=== PATIENT | female | born 1965 | race Caucasian/White ===

== ENCOUNTER 2018-03-01 07:29 | Outpatient (CLI) | payer BC | END 2018-03-01 07:30 | disposition home or self-care (01) | LOC: BICULT 07:29 | PROVIDERS: ATTEND Family Medicine | DX: R10.10 Upper abdominal pain, unspecified (principal) | CPT/HCPCS: 76700 ==

== ENCOUNTER 2018-05-10 16:00 | Outpatient (CLI) | payer BC | END 2018-05-10 16:01 | disposition home or self-care (01) | LOC: BICMAMMO 16:00 | PROVIDERS: ATTEND Family Medicine | DX: Z12.31 Encounter for screening mammogram for malignant neoplasm of breast (principal) | CPT/HCPCS: 77063; 77067 ==

== ENCOUNTER 2018-07-17 08:34 | Outpatient (CLI) | payer BC ==
[2018-07-17] MEDS ORDERED: Iopamidol 370 76% 100 ML VIAL ONE (09:00)
[2018-07-17 09:13] LABS: Bilirubin Negative (Negative); Blood, Urine Negative (Negative); Clarity Clear (Clear); Glucose, Urine (Dipstick) Negative (Negative); Leukocyte Negative (Negative); Nitrite Negative (Negative); Protein, Urine (Dipstick) Negative (Neg-Trace); Urobilinogen 0.2 mg/dL (0.2-1.0); pH, Urine 6.5 (5.0-9.0)
[2018-07-17 09:14] LABS: Specific Gravity, Urine 1.003 (1.002-1.036)
[2018-07-17 09:21] LABS: Bacteria/HPF None Seen HPF (None Seen); Hyaline Casts/LPF NONE SEEN LPF (0-3 Hyaline); RBC/HPF None Seen HPF (0-3); Squamous Epithelial None Seen HPF (0-3); WBC/HPF None Seen HPF (0-3)
[2018-07-17 09:48] LABS: Anion Gap 12 mmol/L (10-20); BUN (Urea Nitrogen) 11 mg/dL (7.0-18.7); Calc. Creatinine Clearance 0 mL/min (70-130); Calcium 9.8 mg/dL (7.8-10.44); Carbon Dioxide 25 mmol/L (22-29); Chloride 105 mmol/L (98-107); Estimated GFR-MDRD 84; Glucose 93 mg/dL (70-105); Sodium 138 mmol/L (136-145)
--- NOTE | 2018-07-17 11:56 | CT ---
CT OF ABDOMEN AND PELVIS PERFORMED WITH AND WITHOUT CONTRAST ENHANCEMENT: Date: 07/17/18 HISTORY: Microhematuria. FINDINGS: The lung bases are clear of infiltrative process. There is a tiny subcentimeter hypodensity in the le ft lobe of the liver, statistically most likely a small cyst. The spleen, pancreas, and gallbladder r egions all appear unremarkable. Right and left adrenal glands are normal in size and appearance. There are no renal calculi identifie d. No signs of any cyst or solid masses of either kidney. There is no significant periaortic or mesen teric adenopathy. The appendix is retrocecal in location and normal in size. CT of pelvis was performed with and without contrast enhancement. No evidence of any significant alysa opathy, mass, or free fluid. Bladder region appears unremarkable. IMPRESSION: No evidence of renal calculi. No cysts or masses identified. POS: [facility]
== END 2018-07-17 08:35 | disposition home or self-care (01) ==
LOC: SCSCT 08:34
PROVIDERS: ATTEND Urology
DX: R31.29 Other microscopic hematuria (principal)
CPT/HCPCS: 36415; 74178; 80048; 81001; 87086

== ENCOUNTER 2018-08-17 14:23 | Outpatient (CLI) | payer BC ==
[2018-08-17 16:53] LABS: #Basophils 0.1 thou/uL (0.0-0.2); #Eosinphils 0.1 thou/uL (0.0-0.7); #Lymphocytes 2.1 thou/uL (1.20-3.40); #Monocytes 0.7 thou/uL (0.11-0.59); #Neutrophils 3.5 thou/uL (1.40-6.50); %Basophils 0.9 % (0.0-1.0); %Eosinophils 2.2 % (0.0-10.0); %Lymphocytes 31.6 % (21.0-51.0); %Monocytes 11.2 % (0.0-10.0); %Neutrophils 54.2 % (42.0-75.0); Hemoglobin 12.6 g/dL (12.0-16.0); Mean Corpuscular HGB CONC 33.2 g/dL (32.0-36.0); Mean Corpuscular Volume 93.4 fL (78.0-98.0); Platelet Count 175 thou/uL (130-400); RBC Distribution Width 11.7 % (11.5-14.5); Red Blood Cell (RBC) Count 4.06 mill/uL (4.20-5.40); White Blood Cell (WBC) Count 6.5 thou/uL (4.8-10.8)
[2018-08-17 17:10] LABS: ALT (SGPT) 37 U/L (8-55); AST (SGOT) 28 U/L (5-34); Albumin 4.4 g/dL (3.5-5.0); Alkaline Phosphatase 72 U/L (40-150); Anion Gap 13 mmol/L (10-20); BUN (Urea Nitrogen) 12 mg/dL (7.0-18.7); Bilirubin, Total 0.5 mg/dL (0.2-1.2); Calc. Creatinine Clearance 0 mL/min (70-130); Calcium 9.9 mg/dL (7.8-10.44); Carbon Dioxide 26 mmol/L (22-29); Chloride 105 mmol/L (98-107); Estimated GFR-MDRD 64; Globulin 3.1 g/dL (2.4-3.5); Glucose 89 mg/dL (70-105); Lipase 24 U/L (8-78); Potassium 4.1 mmol/L (3.5-5.1); Protein, Total 7.5 g/dL (6.0-8.3); Sodium 140 mmol/L (136-145)
--- NOTE | 2018-08-17 19:21 | CT ---
CT OF THE ABDOMEN AND PELVIS WITH IV CONTRAST: 08/17/18 INDICATION: Low back pain and abdominal pain. CONTRAST: 100 mL of Isovue 370. COMPARISON: Prior exam dated 09/17/13. FINDINGS: Lung bases are clear. The liver, spleen, pancreas, and adrenal glands are normal appearing. No focal renal lesion is eviden t. No enlarged lymph nodes or free fluid is evident. There is a normal appendix in the right lower quadr ant. The partially opacified small and large bowel appear within normal limits. No definite acute osseous abnormality is evident. IMPRESSION: 1. No acute abnormality demonstrated. 2. Findings were called to Dr. De La Torre at 5:18 p.m. on 08/17/18. Code CR POS: [id number]
== END 2018-08-17 14:24 ==
LOC: SCSCT 14:23
PROVIDERS: ATTEND Family Medicine
DX: R10.10 Upper abdominal pain, unspecified (principal); R10.30 Lower abdominal pain, unspecified
CPT/HCPCS: 36415; 74177; 80053; 82150; 83690; 85025

== ENCOUNTER 2018-08-27 05:48 | Emergency (ER) | payer BC ==
[2018-08-27] MEDS ORDERED: Famotidine 20 MG TAB ONE (06:33)
[2018-08-27] MEDS ORDERED: Ketorolac Tromethamine 30 MG/ML VIAL ONE (06:34)
[2018-08-27] MEDS ORDERED: Ondansetron PF 4 MG/2 ML Vial ONE (06:34)
[2018-08-27] MEDS ORDERED: Mag-Al Plus 1200 MG/1200 MG/120 MG/30 ML UDCUP ONE (06:34)
[2018-08-27] MEDS ORDERED: Lidocaine Viscous Sol 2% 15 ml UD Cup ONE (06:34)
[2018-08-27 06:39] LABS: #Basophils 0.1 thou/uL (0.0-0.2); #Eosinphils 0.1 thou/uL (0.0-0.7); #Lymphocytes 1.5 thou/uL (1.20-3.40); #Monocytes 0.6 thou/uL (0.11-0.59); #Neutrophils 4.2 thou/uL (1.40-6.50); %Basophils 1.2 % (0.0-1.0); %Eosinophils 1.7 % (0.0-10.0); %Lymphocytes 22.5 % (21.0-51.0); %Monocytes 9.1 % (0.0-10.0); %Neutrophils 65.6 % (42.0-75.0); Hemoglobin 12.4 g/dL (12.0-16.0); Mean Corpuscular HGB CONC 33.9 g/dL (32.0-36.0); Mean Corpuscular Hemoglobin 30.7 pg (27.0-31.0); Mean Corpuscular Volume 90.7 fL (78.0-98.0); Mean Platelet Volume 7.6 fL (7.4-10.4); Platelet Count 176 thou/uL (130-400); RBC Distribution Width 11.6 % (11.5-14.5); Red Blood Cell (RBC) Count 4.02 mill/uL (4.20-5.40); White Blood Cell (WBC) Count 6.4 thou/uL (4.8-10.8)
[2018-08-27 06:52] LABS: ALT (SGPT) 31 U/L (8-55); AST (SGOT) 24 U/L (5-34); Albumin 4.2 g/dL (3.5-5.0); Alkaline Phosphatase 76 U/L (40-150); Anion Gap 14 mmol/L (10-20); BUN (Urea Nitrogen) 13 mg/dL (7.0-18.7); Bilirubin, Total 0.5 mg/dL (0.2-1.2); Calc. Creatinine Clearance 0 mL/min (70-130); Calcium 9.7 mg/dL (7.8-10.44); Carbon Dioxide 24 mmol/L (22-29); Chloride 105 mmol/L (98-107); Estimated GFR-MDRD 77; Globulin 2.9 g/dL (2.4-3.5); Glucose 112 mg/dL (70-105); Lipase 17 U/L (8-78); Potassium 4.2 mmol/L (3.5-5.1); Protein, Total 7.1 g/dL (6.0-8.3); Sodium 139 mmol/L (136-145)
== END 2018-08-27 07:33 | disposition home or self-care (01) ==
LOC: SCSER 05:48
DX: R10.12 Left upper quadrant pain (principal); R11.0 Nausea; I10 Essential (primary) hypertension; E78.00 Pure hypercholesterolemia, unspecified; F41.9 Anxiety disorder, unspecified; Z79.899 Other long term (current) drug therapy
CPT/HCPCS: 80053; 83690; 85025; 93005; 96374; 96375; J1885; J2405

== ENCOUNTER 2018-09-04 11:57 | Day surgery (SDC) | payer BC ==
[2018-09-03 12:56] VITALS: BMI 49.4
[2018-09-04] MEDS ORDERED: PROPOFOL 200 MG/20 ML VIAL ONE (13:56)
[2018-09-04] MEDS ORDERED: Lidocaine 1% PF 5 ML VIAL ONE (13:56)
--- NOTE | 2018-09-04 18:26 | OP ---
DATE OF PROCEDURE: 09/04/2018 TITLE OF PROCEDURE: Esophagogastroduodenoscopy with biopsy. PREOPERATIVE DIAGNOSES: 1. Left upper quadrant pain. 2. Nausea. 3. Intermittent left mid back pain. POSTOPERATIVE DIAGNOSES: 1. Examination to second portion of duodenum. 2. Small 1-2 cm sliding hiatal hernia. 3. Grade A esophagitis at 40 cm, biopsied. 4. Normal stomach. 5. Normal duodenum. 6. No evidence of gastric or duodenal ulcers. PROCEDURE IN DETAIL: Written informed consent was obtained. The patient was brought to the endoscop y suite. Total intravenous anesthesia was provided by Dr. Krueger and associates. The patient was sebastian jass in the left lateral decubitus position. A bite block was inserted into the mouth. A Pentax vide o diagnostic gastroscope was introduced into the oral cavity and the esophagus was carefully intubate d. The gastroscope was advanced under direct visualization to the second portion of the duodenum. E ndoscopic findings revealed a 1-2 cm small sliding hiatal hernia. One discrete linear erosion, no mo re than 3-4 mm in length was identified at the EG junction. Biopsies were obtained for histology. T here was no evidence of ulceration or active bleeding from this area. The stomach was entered and ca refully examined. This included a retroflexed view of the cardia and fundus. The stomach appeared n ormal. The duodenum from the bulb to the second portion was then examined and appeared normal. Ther e was no evidence of ulcer. The stomach was decompressed as the endoscope was removed from the patie nt. She was repositioned for the colonoscopy. RECOMMENDATIONS: 1. Await biopsy results. 2. Initiate Nexium 40 mg daily for 6 weeks. 3. Follow up in GI clinic in 5-6 weeks. 4. 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 5. Low fat diet.
--- NOTE | 2018-09-04 18:45 | OP ---
DATE OF PROCEDURE: 09/04/2018 TITLE OF PROCEDURE: Screening colonoscopy. PREOPERATIVE DIAGNOSIS: Average risk colon cancer screening. POSTOPERATIVE DIAGNOSES: 1. Exam to cecum; good bowel preparation. 2. Small internal hemorrhoids and hypertrophied anal papillae. 3. Otherwise normal colonoscopy; no polyps identified. PROCEDURE IN DETAIL: Written informed consent was obtained. Upon completion of the EGD, the patient was repositioned for the colonoscopy. A digital rectal exam was performed which revealed a small pe rianal tag. A Pentax video colonoscope was inserted through the anal canal and advanced under direct visualization to the cecum. Position in the cecum was verified by clear identification of the appen diceal orifice and the ileocecal valve. The quality of the bowel preparation was good. Each colon s egment was examined carefully as the colonoscope was slowly withdrawn from the cecum. Vascular patte rn and haustral folds appeared normal. No polyp, diverticulum, or vascular ectasia was identified. Haustral folds appeared grossly normal. In the rectum, a retroflexed view demonstrated small interna l hemorrhoids and hypertrophied anal papillae. The colon was decompressed as the colonoscope was com pletely removed from the patient. She was transferred to the day stay surgery area for post-procedur e monitoring. There were no immediate complications. RECOMMENDATIONS: 1. Resume previous diet and medications. 2. Repeat colonoscopy in 10 years for purposes of colon cancer screening. 3. Follow up in GI clinic in 6-8 weeks.
== END 2018-09-04 15:50 | disposition home or self-care (01) ==
LOC: SDC 11:57
PROVIDERS: ATTEND Internal Medicine Gastroenterology
PROC: 0DB28ZX Excision of Middle Esophagus, Via Natural or Artificial Opening Endoscopic, Diagnostic (ICD-10-PCS; principal; 2018-09-04)
PROC: 0DJD8ZZ Inspection of Lower Intestinal Tract, Via Natural or Artificial Opening Endoscopic (ICD-10-PCS; principal; 2018-09-04)
PROC: 0DB38ZX Excision of Lower Esophagus, Via Natural or Artificial Opening Endoscopic, Diagnostic (ICD-10-PCS; principal; 2018-09-04)
DX: Z12.11 Encounter for screening for malignant neoplasm of colon (principal); K20.9 Esophagitis, unspecified; E78.00 Pure hypercholesterolemia, unspecified; I10 Essential (primary) hypertension; Z88.0 Allergy status to penicillin; Z79.899 Other long term (current) drug therapy
CPT/HCPCS: 88305; 88312; 88313; J2001; J2704

== ENCOUNTER 2018-09-26 15:28 | Outpatient (CLI) | payer BC ==
--- NOTE | 2018-09-26 16:33 | MRI ---
LUMBAR SPINE MRI NONCONTRAST: 09/26/18 INDICATION: Bilateral low back pain, without sciatica. Reference made to 09/02/14. FINDINGS: The conus medullaris is normal in morphology terminating at L1 level. There is trace spondylolisthesi s at L4-5. No acute compression fracture or marrow edema. There is bilateral moderate facet hypertrop hy at the L4-5 level with associated cyst formation. The imaged retroperitoneum reveals no significan t abnormality. L5-S1: There is no significant central canal or neural foraminal stenosis. L4-5: Disc osteophyte is present with mild narrowing of the central canal. There is minimal narrowing of the bilateral neural foramina. L3-4: No high grade central canal or neural foraminal stenosis. L2-3: No high grade central canal or neural foraminal narrowing. L1-2: No high grade central canal or neural foraminal stenosis. IMPRESSION: 1. There is no high grade central canal or neural foraminal stenosis. 2. There is mild degenerative changes of the lumbar spine. POS: [facility]
== END 2018-09-26 15:29 | disposition home or self-care (01) ==
LOC: TBSIIMAG 15:28
PROVIDERS: ATTEND Family Medicine
DX: M54.5 Low back pain (principal); M47.816 Spondylosis without myelopathy or radiculopathy, lumbar region
CPT/HCPCS: 72148

== ENCOUNTER 2018-12-21 20:30 | Outpatient (CLI) | payer BC | END 2018-12-21 20:31 | disposition home or self-care (01) | LOC: SLEEPLAB 20:30 | PROVIDERS: ATTEND Family Medicine | DX: G47.33 Obstructive sleep apnea (adult) (pediatric) (principal); I10 Essential (primary) hypertension; E66.9 Obesity, unspecified; F41.9 Anxiety disorder, unspecified; R09.89 Other specified symptoms and signs involving the circulatory and respiratory systems; G47.00 Insomnia, unspecified; R53.83 Other fatigue; Z68.42 Body mass index [BMI] 45.0-49.9, adult | CPT/HCPCS: 95810 ==

== ENCOUNTER 2018-12-28 19:30 | Outpatient (CLI) | payer BC | END 2018-12-28 19:31 | disposition home or self-care (01) | LOC: SLEEPLAB 19:30 | PROVIDERS: ATTEND Family Medicine | DX: G47.33 Obstructive sleep apnea (adult) (pediatric) (principal); R53.83 Other fatigue; R09.89 Other specified symptoms and signs involving the circulatory and respiratory systems; F41.9 Anxiety disorder, unspecified; R06.83 Snoring; G47.00 Insomnia, unspecified; G47.10 Hypersomnia, unspecified; I10 Essential (primary) hypertension; E66.9 Obesity, unspecified; Z68.42 Body mass index [BMI] 45.0-49.9, adult | CPT/HCPCS: 95811 ==

== ENCOUNTER 2019-01-11 13:58 | Outpatient (CLI) | payer BC ==
--- NOTE | 2019-01-11 15:37 | RAD ---
LUMBAR SPINE FOUR VIEWS WITH FLEXION AND EXTENSION STANDING LATERAL VIEWS: HISTORY: Spondylolisthesis. Chronic back pain for years. FINDINGS: Mild grade 1 anterolisthesis of L4 on L5 without evidence for abnormal translation between flexion an d extension. Generalized facet arthrosis. No significant disk osteophytosis. No acute fracture. IMPRESSION: 1. Mild grade 1 stable appearing anterolisthesis of L4 on L5 without abnormal translation between fl exion and extension. 2. Mild generalized spondylosis. POS: [facility]
== END 2019-01-11 13:59 | disposition home or self-care (01) ==
LOC: SCSRAD 13:58
PROVIDERS: ATTEND Anesthesiology Pain Medicine
DX: M43.16 Spondylolisthesis, lumbar region (principal); M47.816 Spondylosis without myelopathy or radiculopathy, lumbar region
CPT/HCPCS: 72120

== ENCOUNTER 2019-02-25 12:35 | Outpatient (CLI) | payer BC ==
--- NOTE | 2019-02-25 15:07 | MRI ---
MRI CERVICAL SPINE WITHOUT CONTRAST: Multiplanar, multisequential imaging of the cervical spine obtained. INDICATION: Cervical and thoracic radiculitis. COMPARISON: Comparison is made to MRI cervical spine dated 06/05/2015. FINDINGS: The cervical vertebrae maintain normal height and alignment. The disk spaces are preserved. Mild de generative osteophytes from the cervical vertebrae. There are posterior spondylytic changes as descr ibed below. At C2-3, no significant abnormality. C3-4 shows minimal disk bulge and spondylosis. Mild left foraminal encroachment from uncinate hypert rophy. At C4-5, mild disk bulge with spondylosis flattens the thecal sac and abuts the anterior word. Mild left foraminal narrowing and moderate right foraminal stenosis due to facet and uncinate hypertrophy. At C5-6, disk bulge and spondylosis abut the anterior cord. Bilateral foraminal encroachment due to uncinate hypertrophy slightly more prominent on the left. At C6-7, there is a prominent disk-osteophyte complex impinging on the anterior cord, similar in appe arance to the prior study. No significant foraminal encroachment at this level is apparent. At C7-T1, no significant abnormality. Cord signal appears normally maintained on T2 sagittal imaging. IMPRESSION: Posterior disk bulge and spondylosis most prominent at C4-5, C5-6, and C6-7 levels as described above . Impingement on the cord is most pronounced at C6-7. Findings do not appear significantly changed when compared to 2015 study. POS: [facility]
--- NOTE | 2019-02-25 15:08 | RAD ---
CERVICAL SPINE SERIES 8 VIEWS INCLUDING FLEXION AND EXTENSION: Date: 02/25/19 HISTORY: Neck pain. FINDINGS: Vertebral bodies are normal in height. Minimal disc narrowing is seen at C5-6. Slightly restricted mo vement at this level is noted, but there is no celina or retrolisthesis present. No soft tissue swell ing. IMPRESSION: Minimal disc narrowing at C5-6. POS: [facility]
== END 2019-02-25 12:36 | disposition home or self-care (01) ==
LOC: TBSIIMAG 12:35
PROVIDERS: ATTEND Anesthesiology Pain Medicine
DX: M54.14 Radiculopathy, thoracic region (principal); M50.20 Other cervical disc displacement, unspecified cervical region; M48.02 Spinal stenosis, cervical region; M47.812 Spondylosis without myelopathy or radiculopathy, cervical region
CPT/HCPCS: 72052; 72141

== ENCOUNTER 2019-03-01 04:49 | Emergency (ER) | payer BC ==
[2019-03-01] MEDS ORDERED: Meclizine HCl 25 MG TAB ONE (05:46)
== END 2019-03-01 05:47 | disposition home or self-care (01) ==
LOC: SCSER 04:49
DX: H81.10 Benign paroxysmal vertigo, unspecified ear (principal); I10 Essential (primary) hypertension; E78.00 Pure hypercholesterolemia, unspecified; F41.9 Anxiety disorder, unspecified; Z79.899 Other long term (current) drug therapy
CPT/HCPCS: 93005; 94760; J8499

== ENCOUNTER 2019-03-28 09:21 | Outpatient (CLI) | payer BC ==
[2019-03-28] MEDS ORDERED: Gadobenate Dimeglumine 529 MG/1 ML (20ML VIAL) ONE (11:43)
--- NOTE | 2019-03-28 14:26 | MRI ---
MRI BRAIN WITH AND WITHOUT CONTRAST: DATE: 03/28/2019. HISTORY: A 53-year-old female with presyncope, vertigo, and imbalance. COMPARISON: 01/26/2017. TECHNIQUE: Multiple sequences obtained in axial, sagittal, and coronal planes; pre and post IV injection of gado linium-based contrast agent: 20 mL MultiHance. FINDINGS: The ventricles are normal in size and configuration. There is no major intraaxial signal abnormality , restricted diffusion, abnormal intraaxial enhancement, mass, midline shift or any other mass effect , or recent intraaxial hemorrhage. There is a CSF-filled extraaxial structure broadly abutting the p osterior surface of the right thalamus, and chronically mildly displacing the right thalamus anterior ly. Medially, it communicates with the superior cerebellar cistern and the velum interpositum, and c ommunicates laterally with the trigone of the right lateral ventricle. It has not changed since 01/26. There has been no significant interval change overall. IMPRESSION: 1. Evidence for small right-sided arachnoid cyst communicating with ventricles and cisterns. This s hould be of little or no clinical significance. 2. Otherwise, normal. jnR POS: [facility]
== END 2019-03-28 09:22 | disposition home or self-care (01) ==
LOC: TBSIIMAG 09:21
PROVIDERS: ATTEND Family Medicine
DX: R55 Syncope and collapse (principal); R42 Dizziness and giddiness; R26.89 Other abnormalities of gait and mobility; R20.0 Anesthesia of skin; R11.0 Nausea; G93.0 Cerebral cysts
CPT/HCPCS: 70553; A9577

== ENCOUNTER 2019-04-09 15:49 | Outpatient (CLI) | payer BC ==
--- NOTE | 2019-04-09 16:42 | MRI ---
MRI thoracic spine noncontrast HISTORY: Back pain with left-sided radiculopathy. FINDINGS: Vertebral body heights and alignment are maintained. Disc hydration is intact. There is subtle decreased in T1 signal and increased T2 signal within the posterior elements of the T 9 vertebra, most prominently involving the right pedicle and facet. No destructive lesions are apparent. Scattered mild to moderate osteophytosis throughout the vertebral bodies and facets. T3-4: Diffuse posterior disc bulge. No cord compression. T7-8: Mild posterior disc protrusion and inferior extension without significant compromise of the the milton sac. T8-9: Mild posterior central disc protrusion. No effect upon the thecal sac or spinal cord. No abnorm al signal is apparent within the cord. IMPRESSION: Mild degenerative changes throughout the thoracic spine as detailed above. No focal spina l cord or nerve root compression. Subtle signal of edema within the posterior elements of T9 without aggressive destruction. Probable d egenerative changes/mild stress reaction.
== END 2019-04-09 15:50 | disposition home or self-care (01) ==
LOC: TBSIIMAG 15:49
PROVIDERS: ATTEND Family Medicine
DX: M54.6 Pain in thoracic spine (principal); M47.814 Spondylosis without myelopathy or radiculopathy, thoracic region
CPT/HCPCS: 72146

== ENCOUNTER 2019-04-30 12:35 | Outpatient (CLI) | payer BC ==
--- NOTE | 2019-04-30 14:43 | PET ---
Nuclear medicine FDG PET/CT whole body: (Positron emission tomography and computed tomography) DATE: 04/30/2019 HISTORY: 53-year-old female with thoracic spine pain and left upper quadrant abdominal pain. No history of can cer. COMPARISON: None available TECHNIQUE: IV injection of F-18 fluorodeoxyglucose (FDG) dose: 13.3 mCi. PET scan and attenuation correction CT performed from vertex of head to bottom of feet. FINDINGS: SUV (standard uptake values) numbers given are maximum SUVs. QCLR used. There is no abnormal FDG-avid lesion in the neck, chest, abdomen, pelvis, head, bilateral upper extre mities, or bilateral lower extremities.. No FDG-avid lesion in the skeleton. Within the limitations of a noncontrast, nondiagnostic CT, no abnormality is identified in the soft tissues of the neck. No mediastinal lymphadenopathy. No aortic aneurysm. Lungs demonstrate no pulmonary edema or consolidation. No pleural effusion or pneumothorax. No renal, ureteral, or bladder calculus. Normal a ppendix. No ascites or pneumoperitoneum. Unremarkable liver, pancreas, adrenals, kidneys, and spleen. No hydronephrosis. IMPRESSION: Normal
== END 2019-04-30 12:36 | disposition home or self-care (01) ==
LOC: PET 12:35
PROVIDERS: ATTEND Family Medicine
DX: M54.6 Pain in thoracic spine (principal); R10.12 Left upper quadrant pain; G89.29 Other chronic pain
CPT/HCPCS: 78816; A9552

== ENCOUNTER 2019-09-03 14:30 | Outpatient (CLI) | payer BC ==
--- NOTE | 2019-09-03 15:22 | MMO ---
Bilateral MAMMO Bilat Screen [facility]. CLINICAL HISTORY: Patient is 53 years old and is seen for screening. The patient has the following family history of breast cancer: cousin female, at age 47, malignant (generic) and cousin female, at age 38, malignant (generic). The patient has no personal history of cancer. VIEWS: The views performed were: bilateral craniocaudal with tomosynthesis and bilateral mediolateral oblique with tomosynthesis. FILMS COMPARED: The present examination has been compared to prior imaging studies performed at [facility] on 05/26/2014, 11/23/2015, 12/22/2016 and 05/10/2018. This study has been interpreted with the assistance of computer-aided detection. MAMMOGRAM FINDINGS: There are scattered fibroglandular densities. There are no suspicious masses, suspicious calcifications, or new areas of architectural distortion. IMPRESSION: THERE IS NO MAMMOGRAPHIC EVIDENCE OF MALIGNANCY. A ROUTINE FOLLOW-UP MAMMOGRAM IN 1 YEAR IS RECOMMENDED. THE RESULTS OF THIS EXAM WERE SENT TO THE PATIENT. ACR BI-RADS Category 1 - Negative MAMMOGRAPHY NOTE: 1. A negative mammogram report should not delay a biopsy if a dominant of clinically suspicious mass is present. 2. Approximately 10% to 15% of breast cancers are not detected by mammography. 3. Adenosis and dense breasts may obscure an underlying neoplasm. Reported by: LIZBETH AUSTIN MD Electonically Signed: [id number]
== END 2019-09-03 14:31 | disposition home or self-care (01) ==
LOC: BICMAMMO 14:30
PROVIDERS: ATTEND Family Medicine
DX: Z12.31 Encounter for screening mammogram for malignant neoplasm of breast (principal); Z80.3 Family history of malignant neoplasm of breast
CPT/HCPCS: 77063; 77067

== ENCOUNTER 2019-12-20 15:19 | Outpatient (CLI) | payer BC ==
--- NOTE | 2019-12-20 15:51 | RAD ---
Cervical spine 5 views: 12/20/2019 COMPARISON: None HISTORY: Neck pain with left upper extremity radiculopathy FINDINGS: Open-mouth odontoid view demonstrates a normal-appearing dens and C1-2 articulation. Cervic al vertebral body height appears normal on the frontal and lateral imaging. The neutral lateral imaging demonstrates no significant anterolisthesis or retrolisthesis. Mild disc space narrowing and posterior osteophyte formation at C5-6. Upon flexion there is minimal anterolisthesis at C2-3 and C3-4 measuring in the 2-3 mm range. This an terolisthesis is not seen on the extension imaging. IMPRESSION: Mild cervical spine degenerative change with minimal anterolisthesis upon flexion as deta ilewilfrido above.
--- NOTE | 2019-12-20 16:34 | MRI ---
Exam: MRI cervical spine without contrast HISTORY: Left arm paresthesia. Neck pain. Bilateral arm numbness, left greater than right. COMPARISON: None FINDINGS: Straightening of normal cervical lordosis is similar to the previous examination. Appropriate T1 mar row signal intensity of the cervical vertebra. Cervical spine vertebral body height is maintained. No fracture No significant STIR hyperintensity to suggest vertebral body edema or ligamentous injury Visualized brain parenchyma, cervicomedullary junction, cervical cord and the upper thoracic cord hav e a normal size and signal intensity. C2-C3: No significant central canal stenosis or significant neural foraminal narrowing C3-C4: No significant central canal stenosis. Right neural foramen is patent. Mild left foraminal arlene rowing due to uncovertebral hypertrophy. C4-C5: Broad-based disc bulge with a right paracentral component. There is mass effect upon the right hemicord. Mild to moderate stenosis of the right aspect of the central spinal canal. Mild bilateral foraminal narrowing due to uncovertebral hypertrophy. C5-C6: Broad-based discussed by complex with a left and right paracentral component. There is mass ef fect and deformity right aspect of the cervical cord. No cord signal hyperintensity. Bilaterally, neural foramina are patent C6-C7: Broad-based disc bulge with central disc herniation. There is effacement of the subarachnoid s pace. Mild to moderate central canal stenosis. Bilaterally, neural foramina are patent C7-T1: No significant central canal stenosis or significant neural foraminal narrowing IMPRESSION: Degenerative changes of the cervical spine as detailed above. Transcribed Date/Time: 12/20/2019 5:06 PM
== END 2019-12-20 15:20 | disposition home or self-care (01) ==
LOC: TBSIIMAG 15:19
PROVIDERS: ATTEND Physician Assistant Surgical
DX: M54.2 Cervicalgia (principal); R20.2 Paresthesia of skin; M47.812 Spondylosis without myelopathy or radiculopathy, cervical region; M43.12 Spondylolisthesis, cervical region
CPT/HCPCS: 72050; 72141

== ENCOUNTER 2020-08-27 07:18 | Outpatient (CLI) | payer BC, OTHER ==
[2020-08-27 09:42] LABS: Hemoglobin 12.1 g/dL (12.0-16.0); Mean Corpuscular HGB CONC 32.9 G/DL (32.0-36.0); Mean Corpuscular Hemoglobin 32.1 PG (27.0-33.0); Mean Corpuscular Volume 97.6 fl (80.0-100.0); Mean Platelet Volume 9.6 fl (7.4-10.4); Platelet Count 217 10x3/uL (130-400); RBC Distribution Width 12.7 % (11.5-14.5); Red Blood Cell (RBC) Count 3.77 10x6/uL (3.90-5.20); White Blood Cell (WBC) Count 4.7 10x3/uL (4.5-11.0)
[2020-08-27 10:06] LABS: PTT 25.8 sec (22.0-33.0); Prothrombin Time 10.2 sec (9.5-12.1)
[2020-08-27 10:21] LABS: Anion Gap 20 mmol/L (10-20); BUN (Urea Nitrogen) 11 mg/dL (9.8-20.1); Calc. Creatinine Clearance 0 mL/min (70-130); Calcium 9.1 mg/dL (7.8-10.44); Carbon Dioxide 22 mmol/L (22-29); Chloride 102 mmol/L (98-107); Estimated GFR-MDRD 64; Glucose 103 mg/dL (70-105); Potassium 4.5 mmol/L (3.5-5.1); Sodium 139 mmol/L (136-145)
[2020-08-27 18:14] LABS: SARS-CoV-2 MS2 Positive; SARS-CoV-2 N Gene Negative; SARS-CoV-2 S Gene Negative; SARS-CoV-2 by NAA Not Detected (NotDetected); SARS-CoV-2 orf1ab Negative
== END 2020-08-27 07:19 | disposition home or self-care (01) ==
LOC: LABBT 07:18
PROVIDERS: ATTEND Surgery
DX: Z01.818 Encounter for other preprocedural examination (principal); M54.12 Radiculopathy, cervical region; M48.02 Spinal stenosis, cervical region; Z20.828 Contact with and (suspected) exposure to other viral communicable diseases
CPT/HCPCS: 80048; 85027; 85610; 85730; 87635; 93005; 93010; U0003

== ENCOUNTER 2020-09-01 05:56 | Day surgery (SDC) | payer BC ==
[2020-08-31 13:14] VITALS: BMI 48.0
[2020-09-01] MEDS ORDERED: Levofloxacin 500 mg/D5W 100 ml Premix Bag ONE (06:26)
[2020-09-01] MEDS ORDERED: Clindamycin/D5W 900 mg/50 ml Premix Bag ONE (06:26)
[2020-09-01] MEDS ORDERED: Thrombin 5000 UNITS/5 ML VIAL ONE (06:31)
[2020-09-01] MEDS ORDERED: Fentanyl 100 MCG/2 ML VIAL ONE ×5 (06:32→11:34)
[2020-09-01] MEDS ORDERED: Midazolam HCl 2 mg/2 ml Vial ONE (06:32)
[2020-09-01] MEDS ORDERED: HYDROmorphone 2 MG/ML VIAL ONE (09:49)
[2020-09-01] MEDS ORDERED: traMADol HCl 50 MG TAB PO PRN (10:06)
[2020-09-01] MEDS ORDERED: Acetaminophen 325 MG TAB PO PRN (10:06)
[2020-09-01] MEDS ORDERED: Ondansetron PF 4 MG/2 ML Vial IVP PRN (10:06)
[2020-09-01] MEDS ORDERED: Milk Of Magnesia 30 ML UDCUP PO PRN (10:06)
[2020-09-01] MEDS ORDERED: Promethazine HCl 25 MG/ML VIAL IM PRN (10:06)
[2020-09-01] MEDS ORDERED: Morphine 2 MG/ML VIAL SLOW IVP PRN (10:06)
[2020-09-01] MEDS ORDERED: Mag-Al 1200 mg/1200 mg/30 ML UDCUP PO PRN (10:06)
[2020-09-01] MEDS ORDERED: Bisacodyl 10 MG SUPP PR PRN (10:06)
[2020-09-01] MEDS ORDERED: Cepastat Lozenges 1 LOZ PO PRN (10:08)
[2020-09-01] MEDS ORDERED: Chloraseptic Spray 180 ml Bottle PO PRN (10:08)
[2020-09-01] MEDS ORDERED: Loratadine 10 MG TAB PO PRN (10:37)
[2020-09-01] MEDS ORDERED: Zolpidem Tartrate 5 MG TAB PO PRN (10:39)
[2020-09-01] MEDS ORDERED: Morphine 4 MG/ML VIAL ONE (10:48)
[2020-09-01] MEDS ORDERED: Non-Formulary Medication 1 EACH PO PRN (11:11)
[2020-09-01] MEDS ORDERED: Promethazine HCl 25 MG/ML VIAL IM/IV PRN (11:15)
[2020-09-01] MEDS ORDERED: Ondansetron HCl/PF 4 MG/2 ML Vial IVP PRN (11:15)
[2020-09-01] MEDS ORDERED: Morphine Sulfate 2 MG/ML SYRINGE SLOW IVP PRN (11:15)
[2020-09-01] MEDS ORDERED: PACU-Morphine 4MG/ML VIAL SLOW IVP PRN (11:15)
--- NOTE | 2020-09-01 11:16 | OP ---
DATE OF PROCEDURE: 09/01/2020 LOCATION: OR 12. PROFESSIONAL SERVICES CONSULTANT: Georgina Mondragon PA-C. 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 PROCEDURES PERFORMED: 1. Anterior C4-C5, C5-C6, C6-C7 diskectomies with decompression of the spinal cord and C5, C6, C7 nerve roots. 2. Placement of interbody spacers packed with allograft, C4-C5, C5-C6, C6-C7, separate from plate. Anterior cervical plate and screw fixation, C4, C5, C6, and C7. 3. Use of operative microscope for microdissection. DESCRIPTION OF PROCEDURE: After informed consent was obtained from the patient, the patient was brought to the OR. Proper patient, pause, and identification were carried out. Following excellent general endotracheal anesthesia induction, the patient was then positioned supine on the OR table and slight cervical extension occurred to expose a right anterior oblique flaquita that would allow for approach to the C4 through C7 segments. This region was sterilely cleansed, prepared, and draped. Proper patient, pause, and identification were carried out. The wound was then opened with a combination of sharp, monopolar, and blunt dissection. We proceeded lateral to the larynx, pharynx, and tracheoesophageal bundle, and medial to the right carotid sheath. We identified the prevertebral layer of deep cervical fascia. This was opened. The longus colli muscle was dissected and retracted, and localization film confirmed our area of interest. We then performed distraction at C4-C5 and the microscope was brought in for microdissection. Diskectomy at C4-C5 was performed with decompression of spinal cord and bilateral C5 nerve roots. The endplates were prepared and interbody spacer packed with allograft was then placed at C4-C5, this was for arthrodesis and this was separate from the plate. This procedure was then repeated at C5-C6 with decompression of spinal cord and C6 nerve roots and at C6-C7 with decompression of spinal cord and C7 nerve roots and preparations of the endplates and placement of interbody spacer packed with allograft at C5-C6, C6-C7. All of these three spacers were separate from the plate. The microscope was then removed. Anterior cervical plate and screw fixation then occurred at C4, C5, C6, C7 with final tightening. Copious irrigation occurred throughout as did maximizing the hemostasis. The wound was then closed in anatomic layers over drain. The patient emerged from anesthesia. Job ID: [id number]
[2020-09-01] MEDS: Sodium Chloride 0.9% 1,000 ML IV SCH ×2 (11:59→23:41)
[2020-09-01] MEDS: HYDROcodone/Acetaminophen 7.5/325 mg Tablet PO PRN ×2 (12:17→18:51)
[2020-09-01] MEDS ORDERED: Glycopyrrolate 0.2 MG/ML 5 ML SYRINGE ONE (12:37)
[2020-09-01] MEDS ORDERED: PROPOFOL 200 MG/20 ML VIAL ONE (12:37)
[2020-09-01] MEDS ORDERED: Dexamethasone 20 MG/5 ML VIAL ONE (12:37)
[2020-09-01] MEDS ORDERED: Lidocaine 1% PF 5 ML VIAL ONE (12:37)
[2020-09-01] MEDS ORDERED: EPHEDRINE 25 MG/5 ML SYRINGE ONE (12:37)
[2020-09-01] MEDS ORDERED: Ondansetron PF 4 MG/2 ML Vial ONE (12:37)
[2020-09-01] MEDS ORDERED: Rocuronium Bromide 10 MG/ML (10ML VIAL) ONE (12:37)
[2020-09-01] MEDS ORDERED: PHENYLEPHRINE-NS 100 MCG/ML 10 ML SYRINGE ONE (12:37)
[2020-09-01] MEDS: tiZANidine HCl 4 MG TAB PO PRN ×2 (13:59→22:08)
[2020-09-01] MEDS: Acetaminophen/Codeine 30-300mg Tablet PO PRN ×3 (13:59→19:53)
[2020-09-01] MEDS: Gabapentin 300 MG CAP PO SCH ×2 (14:00→19:54)
[2020-09-01] MEDS: Clindamycin/D5W 900 MG in Premix Bag 1 BAG IVPB SCH ×2 (15:11→23:40)
[2020-09-01] MEDS ORDERED: Clindamycin/D5W 900 MG in Premix Bag 1 BAG IVPB SCH (16:00)
[2020-09-01] MEDS ORDERED: Atorvastatin Calcium 10 MG TAB PO SCH (21:00)
[2020-09-02] MEDS: Acetaminophen/Codeine 30-300mg Tablet PO PRN (03:20)
[2020-09-02] MEDS: HYDROcodone/Acetaminophen 7.5/325 mg Tablet PO PRN ×2 (04:35→08:54)
[2020-09-02] MEDS: tiZANidine HCl 4 MG TAB PO PRN (05:49)
[2020-09-02 07:57] VITALS: BP 128/74; TEMP 98
[2020-09-02] MEDS: Clindamycin/D5W 900 MG in Premix Bag 1 BAG IVPB SCH (08:51)
[2020-09-02] MEDS: Gabapentin 300 MG CAP PO SCH (08:52)
--- NOTE | 2020-09-02 08:54 | PRG ---
DATE OF SERVICE: 09/02/2020 Ms. Hillman is postoperative day 1 from C4-C7 ACDF. She has had improvement in her neck and arm pain. She is tolerating orals with good strength, minimal drain output. We will remove the drain and she will be discharged. Job ID: [id number]
[2020-09-02] MEDS ORDERED: ESTRADIOL TOP SCH (09:00)
[2020-09-02] MEDS ORDERED: Magnesium Oxide 250 MG TAB PO SCH (09:00)
[2020-09-02] MEDS ORDERED: Lisinopril 20 MG TAB PO SCH (09:00)
[2020-09-02] MEDS ORDERED: Furosemide 40 MG TAB PO SCH (09:00)
== END 2020-09-02 11:58 | disposition home or self-care (01) ==
LOC: SDC 05:56 → SURG A 11:51 → SDC 09-02 11:58
PROVIDERS: ATTEND Surgery
PROC: 0RG20A0 Fusion of 2 or more Cervical Vertebral Joints with Interbody Fusion Device, Anterior Approach, Anterior Column, Open Approach (ICD-10-PCS; principal; 2020-09-02)
PROC: 00NW0ZZ Release Cervical Spinal Cord, Open Approach (ICD-10-PCS; principal; 2020-09-02)
PROC: 01N10ZZ Release Cervical Nerve, Open Approach (ICD-10-PCS; principal; 2020-09-02)
PROC: 0RG2070 Fusion of 2 or more Cervical Vertebral Joints with Autologous Tissue Substitute, Anterior Approach, Anterior Column, Open Approach (ICD-10-PCS; principal; 2020-09-02)
DX: M48.02 Spinal stenosis, cervical region (principal); M54.12 Radiculopathy, cervical region; G99.2 Myelopathy in diseases classified elsewhere; Z79.899 Other long term (current) drug therapy; Z88.0 Allergy status to penicillin
CPT/HCPCS: 76000; C1713; C1776; J1100; J1170; J1956; J2250; J2270; J2405; J2704; J3010; J3490

== ENCOUNTER 2020-10-15 10:58 | Outpatient (CLI) | payer BC ==
--- NOTE | 2020-10-15 12:46 | RAD ---
EXAM: XR Cerv Sp Ap Lat STANDARD PROVIDED CLINICAL HISTORY: Cervical radiculopathy. History of prior neck surgery. COMPARISON: 12/20/2019 FINDINGS: Interval postoperative changes related to anterior cervical fusion of the cervical spine are seen. An terior plate and screws transfix the C4-5 and C5-6, and C6-7 levels. Intradiscal prostheses are seen at these levels. There is limited evaluation of the C6 and C7 vertebral bodies due to overlying osseous structures on the lateral and swimmer's views of the cervical spine. The intradiscal prosthesis at the C6-7 level has an angulated appearance. One of the screws in the C7 vertebral body is not flush with the anterior plate. There is suggestion of trace anterolisthesis of C2 on C3 and C3 on C4. Vertebral body heights of the upper cervical spine are within normal limits. Prevertebral s oft tissues are not well evaluated due to overlying structures. IMPRESSION: Limited examination with limited evaluation of the lower cervical spine. Interval postoperative augustin es related to anterior cervical fusion of C4-C7 are noted. The intradiscal prosthesis at the C6-7 level is angulated and exact position is difficult to determine as the C6 and C7 vertebral arteries a re not well delineated. One of the anterior screws in the C7 vertebral body is not flush with the plate.
== END 2020-10-15 10:59 | disposition home or self-care (01) ==
LOC: TBSIIMAG 10:58
PROVIDERS: ATTEND Surgery
DX: M54.12 Radiculopathy, cervical region (principal); M48.02 Spinal stenosis, cervical region; Z98.1 Arthrodesis status
CPT/HCPCS: 72040

== ENCOUNTER 2020-12-01 14:32 | Outpatient (CLI) | payer BC ==
--- NOTE | 2020-12-01 14:59 | RAD ---
EXAM: CERVICAL SPINE TWO VIEWS: 12/01/20 HISTORY: Follow-up surgery. COMPARISON: 10/15/20. FINDINGS: Anterior cervical fusion changes noted at C4, C5, C6, and C7 with intradiscal prosthesis. No signific ant prevertebral soft tissue swelling. No significant malalignment. Stable from prior exam. IMPRESSION: Stable postoperative changes. POS: [facility]
== END 2020-12-01 14:33 | disposition home or self-care (01) ==
LOC: TBSIIMAG 14:32
PROVIDERS: ATTEND Surgery
DX: M54.12 Radiculopathy, cervical region (principal); Z98.1 Arthrodesis status
CPT/HCPCS: 72040

== ENCOUNTER 2021-02-24 08:09 | Outpatient (CLI) | payer BC | END 2021-02-24 08:10 | disposition home or self-care (01) | LOC: TBSI PT 08:09 | PROVIDERS: ATTEND Surgery | DX: M48.02 Spinal stenosis, cervical region (principal); M50.20 Other cervical disc displacement, unspecified cervical region; M54.12 Radiculopathy, cervical region; Z98.890 Other specified postprocedural states | CPT/HCPCS: 72040 ==

== ENCOUNTER 2021-03-23 10:15 | Outpatient (CLI) | payer BC | END 2021-03-23 10:16 | disposition home or self-care (01) | LOC: TBSIIMAG 10:15 | PROVIDERS: ATTEND Surgery | DX: M54.12 Radiculopathy, cervical region (principal); M48.02 Spinal stenosis, cervical region; M48.8X2 Other specified spondylopathies, cervical region; Z98.1 Arthrodesis status | CPT/HCPCS: 72141 ==

== ENCOUNTER 2021-04-16 06:56 | Day surgery (SDC) | payer BC ==
[2021-04-14 10:51] VITALS: BMI 48.0
[2021-04-16 07:58] VITALS: BP 132/74; TEMP 97.8
[2021-04-16] MEDS ORDERED: Acetaminophen 500 MG TAB ONE (09:12)
[2021-04-16] MEDS ORDERED: Iopamidol-M 300 61% 15 ML VIAL ONE (11:00)
== END 2021-04-16 09:45 | disposition home or self-care (01) ==
LOC: RAD 06:56
PROVIDERS: ATTEND Surgery
PROC: B02B1ZZ Computerized Tomography (CT Scan) of Spinal Cord using Low Osmolar Contrast (ICD-10-PCS; principal; 2021-04-16)
DX: M43.12 Spondylolisthesis, cervical region (principal); M54.12 Radiculopathy, cervical region; M25.78 Osteophyte, vertebrae; M48.02 Spinal stenosis, cervical region; I10 Essential (primary) hypertension; E78.5 Hyperlipidemia, unspecified; G47.30 Sleep apnea, unspecified; Z79.899 Other long term (current) drug therapy; Z88.0 Allergy status to penicillin; Z98.1 Arthrodesis status
CPT/HCPCS: 62302; 72126; Q9967

== ENCOUNTER 2021-05-06 10:42 | Outpatient (CLI) | payer BC | END 2021-05-06 10:43 | disposition home or self-care (01) | LOC: BICMAMMO 10:42 | PROVIDERS: ATTEND Family Medicine | DX: Z12.31 Encounter for screening mammogram for malignant neoplasm of breast (principal); Z80.3 Family history of malignant neoplasm of breast | CPT/HCPCS: 77063; 77067 ==

== ENCOUNTER 2021-12-07 23:05 | Inpatient (IN) | payer BC ==
[2021-12-07] MEDS ORDERED: Albuterol 200 PUFF (6.7GM INHALER) ONE (23:35)
[2021-12-07] MEDS ORDERED: methylPREDNISolone Sod Succ/PF 125 MG/2 ML VIAL ONE (23:35)
[2021-12-07 23:37] LABS: #Lymphocytes 0.5 thou/uL (1.20-3.40); #Monocytes 0.2 thou/uL (0.11-0.59); #Neutrophils 3.9 thou/uL (1.40-6.50); %Basophils 0.8 % (0.0-1.0); %Eosinophils 0.1 % (0.0-10.0); %Lymphocytes 10.3 % (21.0-51.0); %Monocytes 4.5 % (0.0-10.0); %Neutrophils 84.3 % (42.0-75.0); Mean Corpuscular HGB CONC 34.1 g/dL (32.0-36.0); Mean Corpuscular Hemoglobin 32.2 pg (27.0-31.0); Mean Corpuscular Volume 94.4 fL (78.0-98.0); Mean Platelet Volume 7.6 fL (7.4-10.4); Platelet Count 176 thou/uL (130-400); RBC Distribution Width 12.4 % (11.5-14.5); Red Blood Cell (RBC) Count 3.43 mill/uL (4.20-5.40); White Blood Cell (WBC) Count 4.6 thou/uL (4.8-10.8)
[2021-12-07 23:57] LABS: ALT (SGPT) 118 U/L (8-55); AST (SGOT) 132 U/L (5-34); Albumin 3.5 g/dL (3.5-5.0); Alkaline Phosphatase 70 U/L (40-110); Anion Gap 16 mmol/L (10-20); BUN (Urea Nitrogen) 22 mg/dL (9.8-20.1); Bilirubin, Total 0.5 mg/dL (0.2-1.2); Calc. Creatinine Clearance 0 mL/min (70-130); Calcium 8.7 mg/dL (7.8-10.44); Carbon Dioxide 21 mmol/L (22-29); Chloride 100 mmol/L (98-107); Globulin 3.1 g/dL (2.4-3.5); Glucose 114 mg/dL (70-105); Potassium 3.3 mmol/L (3.5-5.1); Protein, Total 6.6 g/dL (6.0-8.3); Sodium 134 mmol/L (136-145)
[2021-12-08] MEDS ORDERED: Acetaminophen 500 MG TAB ONE (00:14)
[2021-12-08] MEDS ORDERED: Ondansetron PF 4 MG/2 ML Vial IVP PRN (00:57)
[2021-12-08] MEDS ORDERED: Acetaminophen 325 MG TAB PO PRN (00:57)
[2021-12-08] MEDS ORDERED: Fentanyl 100 MCG/2 ML VIAL ONE (01:43)
[2021-12-08] MEDS ORDERED: Enoxaparin Sodium 100 MG/ML SYRINGE ONE (02:03)
[2021-12-08] MEDS ORDERED: Enoxaparin Sodium 40 MG/0.4 ML SYRINGE ONE (02:03)
[2021-12-08] MEDS ORDERED: HYDROcodone/Acetaminophen 7.5/325 mg Tablet ONE (03:46)
[2021-12-08] MEDS ORDERED: Benzonatate 100 MG CAP ONE (05:05)
[2021-12-08] MEDS ORDERED: Benzonatate 100 MG CAP PO SCH (06:30)
[2021-12-08] MEDS ORDERED: HYDROcodone/Acetaminophen 7.5/325 mg Tablet PO SCH (06:30)
[2021-12-08] MEDS: Heparin 5,000 UNITS/ML VIAL SC SCH ×3 (08:24→20:32)
[2021-12-08 08:26] LABS: Clarity Clear (Clear); Leukocyte Negative (Negative); pH, Urine 5.5 (5.0-9.0)
[2021-12-08 08:27] LABS: Bilirubin Negative (Negative); Blood, Urine Negative (Negative); Glucose, Urine (Dipstick) Negative (Negative); Ketone, Urine Negative (Negative); Nitrite Negative (Negative); Protein, Urine (Dipstick) Trace mg/dL (Neg-Trace); Urobilinogen 0.2 mg/dL (Less than 2)
[2021-12-08] MEDS ORDERED: Famotidine 20 MG TAB PO SCH (09:00)
[2021-12-08] MEDS ORDERED: hydrALAZINE 20 MG/ML VIAL SLOW IVP PRN (10:12)
[2021-12-08] MEDS ORDERED: Sodium Chloride 0.65% Nasal 44 ML BOT EA NARE PRN (10:12)
[2021-12-08] MEDS ORDERED: Zolpidem Tartrate 5 MG TAB PO PRN (10:12)
[2021-12-08] MEDS ORDERED: Senokot S 8.6-50 MG TAB PO PRN (10:12)
[2021-12-08] MEDS ORDERED: Cepastat Lozenges 1 LOZ PO PRN (10:12)
[2021-12-08] MEDS ORDERED: Calcium Carbonate 500 MG ChewTAB PO PRN (10:12)
[2021-12-08] MEDS ORDERED: Loratadine 10 MG TAB PO PRN (10:12)
[2021-12-08] MEDS ORDERED: Loperamide HCl 2 MG CAP PO PRN (10:12)
[2021-12-08] MEDS ORDERED: Albuterol 200 PUFF (6.7GM INHALER) INH PRN (10:22)
[2021-12-08 10:49] LABS: #Lymphocytes 0.5 thou/uL (1.20-3.40); #Monocytes 0.1 thou/uL (0.11-0.59); #Neutrophils 3.9 thou/uL (1.40-6.50); %Eosinophils 0.1 % (0.0-10.0); %Lymphocytes 11.3 % (21.0-51.0); %Monocytes 2.1 % (0.0-10.0); %Neutrophils 86.5 % (42.0-75.0); Hemoglobin 10.6 g/dL (12.0-16.0); Mean Corpuscular HGB CONC 33.7 g/dL (32.0-36.0); Mean Corpuscular Volume 95.1 fL (78.0-98.0); Mean Platelet Volume 7.6 fL (7.4-10.4); Platelet Count 164 thou/uL (130-400); RBC Distribution Width 12.4 % (11.5-14.5); Red Blood Cell (RBC) Count 3.31 mill/uL (4.20-5.40); White Blood Cell (WBC) Count 4.5 thou/uL (4.8-10.8)
[2021-12-08] MEDS: Benzonatate 100 MG CAP PO PRN ×3 (11:01→23:04)
[2021-12-08] MEDS: guaiFENesin/Codeine 200 mg/20 mg 10 ml Cup PO PRN ×3 (11:01→22:45)
[2021-12-08 11:11] LABS: Anion Gap 15 mmol/L (10-20); BUN (Urea Nitrogen) 24 mg/dL (9.8-20.1); Calc. Creatinine Clearance 97 mL/min (70-130); Calcium 8.5 mg/dL (7.8-10.44); Carbon Dioxide 20 mmol/L (22-29); Chloride 105 mmol/L (98-107); Glucose 190 mg/dL (70-105); Potassium 3.8 mmol/L (3.5-5.1); Sodium 136 mmol/L (136-145)
[2021-12-08] MEDS: Albuterol 200 PUFF (6.7GM INHALER) INH SCH ×2 (13:03→19:04)
[2021-12-08] MEDS: HYDROcodone/Acetaminophen 5/325 mg Tablet PO PRN ×2 (13:07→15:59)
[2021-12-08] MEDS ORDERED: HYDROcodone/Acetaminophen 10/325 mg Tablet PO PRN (18:19)
[2021-12-08] MEDS: Pregabalin 75 MG CAP PO SCH (20:31)
[2021-12-09 02:54] LABS: Actual Bicarbonate (HCO3a) 23.5 mEq/L (22-28); Base Excess (BEa) -1.1 mEq/L (-2.0 to +3.0); CO2 Tension 38.7 mmHg (35.0-45.0); Calcium, Ionized (arterial) 1.18 mmol/L (1.12-1.30); Carboxyhemoglobin (COHb) 0.3 gm% (0.0-3.0); Hemoglobin (Hb) 11.4 g/dL (12.0-16.0); Potassium - ABG Lab 3.89 mmol/L (3.70-5.30)
[2021-12-09 03:06] LABS: O2 Tension (PaO2), arterial 46.9 mmHg (80.0-100.0)
[2021-12-09 03:07] LABS: ALV-art Gradient 546.425 mmHg (0-20); Puncture Site LBR
[2021-12-09] MEDS: Albuterol 200 PUFF (6.7GM INHALER) INH SCH ×4 (03:19→19:37)
[2021-12-09] MEDS ORDERED: ALPRAZolam 0.25 MG TAB PO SCH (03:30)
[2021-12-09 03:51] LABS: #Lymphocytes 0.8 thou/uL (1.20-3.40); #Monocytes 0.3 thou/uL (0.11-0.59); #Neutrophils 6.7 thou/uL (1.40-6.50); %Basophils 0.4 % (0.0-1.0); %Eosinophils 0.1 % (0.0-10.0); %Lymphocytes 10.5 % (21.0-51.0); %Monocytes 3.7 % (0.0-10.0); %Neutrophils 85.4 % (42.0-75.0); Hemoglobin 11.2 g/dL (12.0-16.0); Mean Corpuscular HGB CONC 33.8 g/dL (32.0-36.0); Mean Corpuscular Hemoglobin 32.1 pg (27.0-31.0); Mean Corpuscular Volume 94.9 fL (78.0-98.0); Mean Platelet Volume 7.9 fL (7.4-10.4); Platelet Count 222 thou/uL (130-400); RBC Distribution Width 12.3 % (11.5-14.5); Red Blood Cell (RBC) Count 3.48 mill/uL (4.20-5.40); White Blood Cell (WBC) Count 7.9 thou/uL (4.8-10.8)
[2021-12-09 04:09] LABS: Anion Gap 14 mmol/L (10-20); BUN (Urea Nitrogen) 23 mg/dL (9.8-20.1); CRP (Inflammatory) 13.49 mg/dL (= or < 0.5); Calc. Creatinine Clearance 132 mL/min (70-130); Calcium 8.8 mg/dL (7.8-10.44); Carbon Dioxide 20 mmol/L (22-29); Chloride 107 mmol/L (98-107); Glucose 130 mg/dL (70-105); Magnesium 1.9 mg/dL (1.6-2.6); Potassium 3.9 mmol/L (3.5-5.1); Sodium 137 mmol/L (136-145)
[2021-12-09] MEDS: Heparin 5,000 UNITS/ML VIAL SC SCH ×2 (08:18→14:55)
[2021-12-09] MEDS: Ascorbic Acid 500 mg Chewable Tablet PO SCH (08:19)
[2021-12-09] MEDS: Cholecalciferol 1,000 UNITS (25 MCG) TAB PO SCH (08:19)
[2021-12-09] MEDS: Zinc Sulfate 220 MG CAP PO SCH (08:19)
[2021-12-09] MEDS: Aspirin 325 MG TAB PO SCH (08:19)
[2021-12-09] MEDS: Benzonatate 100 MG CAP PO PRN (08:20)
[2021-12-09] MEDS: Pregabalin 75 MG CAP PO SCH ×3 (08:21→20:09)
[2021-12-09] MEDS: DULoxetine 60 MG CAP PO SCH (08:23)
[2021-12-09 08:43] LABS: ALT (SGPT) 89 U/L (8-55); AST (SGOT) 110 U/L (5-34); Albumin 3.5 g/dL (3.5-5.0); Alkaline Phosphatase 65 U/L (40-110); Bilirubin, Direct 0.2 mg/dL (0.1-0.3); Bilirubin, Total 0.3 mg/dL (0.2-1.2); Phosphorus 3.5 mg/dL (2.3-4.7); Protein, Total 6.5 g/dL (6.0-8.3)
[2021-12-09] MEDS ORDERED: Dexamethasone 4 mg/ml Vial SLOW IVP SCH (09:00)
[2021-12-09] MEDS: guaiFENesin/Codeine 200 mg/20 mg 10 ml Cup PO PRN (14:54)
[2021-12-09] MEDS: Pantoprazole 40 MG VIAL IVP SCH (16:28)
[2021-12-09] MEDS: Dexamethasone 10 MG/ML VIAL SLOW IVP SCH (20:04)
[2021-12-09] MEDS: Enoxaparin Sodium 60 MG/0.6 ML SYRINGE SC SCH (20:05)
[2021-12-09] MEDS: Atorvastatin Calcium 10 MG TAB PO SCH (20:08)
[2021-12-09] MEDS ORDERED: BARICITINIB 2 MG TAB PO SCH (21:00)
[2021-12-10] MEDS: Albuterol 200 PUFF (6.7GM INHALER) INH SCH ×4 (01:27→19:02)
[2021-12-10] MEDS: Pantoprazole 40 MG VIAL IVP SCH ×2 (04:19→17:07)
[2021-12-10 04:24] LABS: #Basophils 0.1 thou/uL (0.0-0.2); #Lymphocytes 0.7 thou/uL (1.20-3.40); #Monocytes 0.3 thou/uL (0.11-0.59); #Neutrophils 5.8 thou/uL (1.40-6.50); %Basophils 1.4 % (0.0-1.0); %Eosinophils 0.1 % (0.0-10.0); %Lymphocytes 10.2 % (21.0-51.0); %Monocytes 4.3 % (0.0-10.0); Hemoglobin 10.7 g/dL (12.0-16.0); Mean Corpuscular HGB CONC 32.8 g/dL (32.0-36.0); Mean Corpuscular Hemoglobin 32.3 pg (27.0-31.0); Mean Corpuscular Volume 98.5 fL (78.0-98.0); Platelet Count 256 thou/uL (130-400); RBC Distribution Width 12.4 % (11.5-14.5); Red Blood Cell (RBC) Count 3.31 mill/uL (4.20-5.40); White Blood Cell (WBC) Count 6.9 thou/uL (4.8-10.8)
[2021-12-10 04:36] LABS: Anion Gap 14 mmol/L (10-20); BUN (Urea Nitrogen) 29 mg/dL (9.8-20.1); Calc. Creatinine Clearance 157 mL/min (70-130); Carbon Dioxide 23 mmol/L (22-29); Chloride 107 mmol/L (98-107); Glucose 168 mg/dL (70-105); Potassium 4.4 mmol/L (3.5-5.1); Sodium 140 mmol/L (136-145)
[2021-12-10 04:37] LABS: ALT (SGPT) 76 U/L (8-55); AST (SGOT) 93 U/L (5-34); Albumin 3.3 g/dL (3.5-5.0); Alkaline Phosphatase 69 U/L (40-110); Bilirubin, Direct 0.2 mg/dL (0.1-0.3); Bilirubin, Total 0.3 mg/dL (0.2-1.2); Protein, Total 6.4 g/dL (6.0-8.3)
[2021-12-10] MEDS: Pregabalin 75 MG CAP PO SCH ×3 (08:57→20:36)
[2021-12-10] MEDS: Zinc Sulfate 220 MG CAP PO SCH (09:02)
[2021-12-10] MEDS: Aspirin 325 MG TAB PO SCH (09:02)
[2021-12-10] MEDS: Ascorbic Acid 500 mg Chewable Tablet PO SCH (09:02)
[2021-12-10] MEDS: Cholecalciferol 1,000 UNITS (25 MCG) TAB PO SCH (09:02)
[2021-12-10] MEDS: DULoxetine 60 MG CAP PO SCH (09:02)
[2021-12-10] MEDS: Dexamethasone 10 MG/ML VIAL SLOW IVP SCH ×2 (09:03→20:37)
[2021-12-10] MEDS: Enoxaparin Sodium 60 MG/0.6 ML SYRINGE SC SCH ×2 (09:03→20:36)
[2021-12-10] MEDS ORDERED: Propofol 1,000 MG/100 ML VIAL IV ONE (13:45)
[2021-12-10] MEDS ORDERED: Ventilator Sedation Protocol 1 EACH FS ONE (14:21)
[2021-12-10] MEDS ORDERED: Vecuronium 10 MG VIAL IV PRN (14:22)
[2021-12-10 14:26] LABS: Actual Bicarbonate (HCO3a) 23.6 mEq/L (22-28); Base Excess (BEa) -1.6 mEq/L (-2.0 to +3.0); CO2 Tension 41.8 mmHg (35.0-45.0); Calcium, Ionized (arterial) 1.22 mmol/L (1.12-1.30); Carboxyhemoglobin (COHb) 0.3 gm% (0.0-3.0); Hemoglobin (Hb) 11.9 g/dL (12.0-16.0); Potassium - ABG Lab 4.57 mmol/L (3.70-5.30); pH, Arterial 7.37 (7.35-7.45)
[2021-12-10] MEDS ORDERED: Fentanyl BOLUS 250 ML IVPB PRN (14:30)
[2021-12-10] MEDS ORDERED: fentaNYL Citrate/PF 2,000 MCG in Sodium Chloride 0.9% 60 ML IV SCH (14:30)
[2021-12-10] MEDS ORDERED: Propofol BOLUS 1,000 MG/100 ML VIAL IV PRN (14:30)
[2021-12-10] MEDS ORDERED: Morphine 4 MG/ML VIAL SLOW IVP PRN (14:30)
[2021-12-10 14:39] LABS: O2 Tension (PaO2), arterial 51.7 mmHg (80.0-100.0); Puncture Site RRA
[2021-12-10] MEDS: Lorazepam 2 MG/ML VIAL SLOW IVP PRN ×3 (15:26→23:48)
[2021-12-10] MEDS: Vecuronium 10 MG VIAL IV PRN ×4 (15:26→23:48)
[2021-12-10] MEDS ORDERED: Sodium Chloride 3% 100 ML IVPB SCH (17:15)
[2021-12-10] MEDS ORDERED: Furosemide 40 MG/4 ML VIAL SLOW IVP SCH (18:15)
[2021-12-10] MEDS: Propofol 1,000 MG/100 ML VIAL IV PRN (19:13)
[2021-12-10] MEDS ORDERED: fentaNYL Citrate-0.9 % NaCl/PF 100 ML IV SCH (19:30)
[2021-12-10] MEDS: Atorvastatin Calcium 10 MG TAB PO SCH (20:36)
[2021-12-10] MEDS: BARICITINIB 2 MG TAB PO SCH (20:37)
[2021-12-10] MEDS ORDERED: Sterile Water 10 ML ONE ×2 (21:05→23:44)
[2021-12-11] MEDS: Albuterol 200 PUFF (6.7GM INHALER) INH SCH ×5 (00:25→23:23)
[2021-12-11] MEDS: Propofol 1,000 MG/100 ML VIAL IV PRN ×5 (00:44→20:15)
[2021-12-11] MEDS: Pantoprazole 40 MG VIAL IVP SCH ×2 (03:20→15:58)
[2021-12-11] MEDS: Lorazepam 2 MG/ML VIAL SLOW IVP PRN ×8 (03:21→20:15)
[2021-12-11] MEDS: Vecuronium 10 MG VIAL IV PRN ×9 (03:21→23:26)
[2021-12-11 04:12] LABS: #Eosinphils 0.1 thou/uL (0.0-0.7); #Lymphocytes 0.7 thou/uL (1.20-3.40); #Monocytes 0.5 thou/uL (0.11-0.59); #Neutrophils 4.5 thou/uL (1.40-6.50); %Basophils 0.3 % (0.0-1.0); %Eosinophils 2.1 % (0.0-10.0); %Monocytes 8.1 % (0.0-10.0); %Neutrophils 77.6 % (42.0-75.0); Hemoglobin 10.6 g/dL (12.0-16.0); Mean Corpuscular HGB CONC 34.3 g/dL (32.0-36.0); Mean Corpuscular Hemoglobin 32.9 pg (27.0-31.0); Mean Platelet Volume 8.3 fL (7.4-10.4); Platelet Count 252 thou/uL (130-400); RBC Distribution Width 12.2 % (11.5-14.5); Red Blood Cell (RBC) Count 3.21 mill/uL (4.20-5.40); White Blood Cell (WBC) Count 5.8 thou/uL (4.8-10.8)
[2021-12-11 04:33] LABS: ALT (SGPT) 70 U/L (8-55); AST (SGOT) 76 U/L (5-34); Albumin 3.1 g/dL (3.5-5.0); Alkaline Phosphatase 80 U/L (40-110); Anion Gap 15 mmol/L (10-20); BUN (Urea Nitrogen) 30 mg/dL (9.8-20.1); Bilirubin, Direct 0.3 mg/dL (0.1-0.3); Bilirubin, Total 0.4 mg/dL (0.2-1.2); Calc. Creatinine Clearance 172 mL/min (70-130); Calcium 8.6 mg/dL (7.8-10.44); Carbon Dioxide 25 mmol/L (22-29); Chloride 105 mmol/L (98-107); Glucose 225 mg/dL (70-105); Potassium 3.3 mmol/L (3.5-5.1); Sodium 142 mmol/L (136-145)
[2021-12-11] MEDS ORDERED: Sterile Water 10 ML ONE (06:16)
[2021-12-11] MEDS: Enoxaparin Sodium 60 MG/0.6 ML SYRINGE SC SCH ×2 (07:52→22:08)
[2021-12-11] MEDS: Zinc Sulfate 220 MG CAP PO SCH (07:53)
[2021-12-11] MEDS: Ascorbic Acid 500 mg Chewable Tablet PO SCH (07:53)
[2021-12-11] MEDS: Pregabalin 75 MG CAP PO SCH ×2 (09:11→12:32)
[2021-12-11] MEDS: Cholecalciferol 1,000 UNITS (25 MCG) TAB PO SCH (09:11)
[2021-12-11] MEDS: Dexamethasone 10 MG/ML VIAL SLOW IVP SCH ×2 (09:11→22:08)
[2021-12-11] MEDS: DULoxetine 60 MG CAP PO SCH (09:59)
[2021-12-11] MEDS: Aspirin 325 MG TAB PO SCH (12:29)
[2021-12-11] MEDS: BARICITINIB 2 MG TAB PO SCH (22:08)
[2021-12-11] MEDS: Atorvastatin Calcium 10 MG TAB PO SCH (22:08)
[2021-12-12] MEDS: Lorazepam 2 MG/ML VIAL SLOW IVP PRN ×11 (01:21→23:06)
[2021-12-12] MEDS: Vecuronium 10 MG VIAL IV PRN ×11 (01:21→23:06)
[2021-12-12] MEDS: Propofol 1,000 MG/100 ML VIAL IV PRN ×5 (01:28→23:30)
[2021-12-12] MEDS: Pantoprazole 40 MG VIAL IVP SCH ×2 (04:05→16:26)
[2021-12-12 04:58] LABS: ALT (SGPT) 64 U/L (8-55); AST (SGOT) 62 U/L (5-34); Albumin 3.2 g/dL (3.5-5.0); Alkaline Phosphatase 71 U/L (40-110); Anion Gap 7 mmol/L (10-20); BUN (Urea Nitrogen) 24 mg/dL (9.8-20.1); Bilirubin, Direct 0.3 mg/dL (0.1-0.3); Bilirubin, Total 0.6 mg/dL (0.2-1.2); Calc. Creatinine Clearance 188 mL/min (70-130); Carbon Dioxide 31 mmol/L (22-29); Chloride 106 mmol/L (98-107); Globulin 2.6 g/dL (2.4-3.5); Glucose 210 mg/dL (70-105); Potassium 3.4 mmol/L (3.5-5.1); Protein, Total 5.8 g/dL (6.0-8.3); Sodium 141 mmol/L (136-145)
[2021-12-12 05:26] LABS: Hemoglobin 10.8 g/dL (12.0-16.0); Mean Corpuscular HGB CONC 33.8 g/dL (32.0-36.0); Mean Corpuscular Hemoglobin 32.7 pg (27.0-31.0); Mean Corpuscular Volume 96.7 fL (78.0-98.0); Mean Platelet Volume 8.1 fL (7.4-10.4); Platelet Count 317 thou/uL (130-400); RBC Distribution Width 12.3 % (11.5-14.5); Red Blood Cell (RBC) Count 3.31 mill/uL (4.20-5.40); White Blood Cell (WBC) Count 6.7 thou/uL (4.8-10.8)
[2021-12-12] MEDS ORDERED: Potassium Chloride 20 MEQ in Premix Bag 1 BAG IVPB SCH (05:45)
[2021-12-12 06:42] LABS: #Eosinphils 0.1 thou/uL (0.0-0.7); #Monocytes 0.7 thou/uL (0.11-0.59); %Basophils 0.1 % (0.0-1.0); %Eosinophils 0.8 % (0.0-10.0); %Lymphocytes 14.3 % (21.0-51.0); %Monocytes 10.1 % (0.0-10.0); %Neutrophils 74.8 % (42.0-75.0); RBC Morphology Normal
[2021-12-12] MEDS: fentaNYL Citrate/PF 2,000 MCG in Sodium Chloride 0.9% 60 ML IV SCH (07:22)
[2021-12-12] MEDS: Albuterol 200 PUFF (6.7GM INHALER) INH SCH ×4 (08:00→23:43)
[2021-12-12] MEDS: Dexamethasone 10 MG/ML VIAL SLOW IVP SCH ×2 (09:54→20:49)
[2021-12-12] MEDS: Zinc Sulfate 220 MG CAP PO SCH (09:54)
[2021-12-12] MEDS: Ascorbic Acid 500 mg Chewable Tablet PO SCH (09:54)
[2021-12-12] MEDS: Cholecalciferol 1,000 UNITS (25 MCG) TAB PO SCH (09:55)
[2021-12-12] MEDS: Enoxaparin Sodium 60 MG/0.6 ML SYRINGE SC SCH ×2 (09:55→20:50)
[2021-12-12] MEDS: Aspirin 325 MG TAB PO SCH (09:55)
[2021-12-12] MEDS: BARICITINIB 2 MG TAB PO SCH (20:49)
[2021-12-12] MEDS: Atorvastatin Calcium 10 MG TAB PO SCH (20:50)
[2021-12-13] MEDS: Vecuronium 10 MG VIAL IV PRN ×3 (01:44→08:51)
[2021-12-13] MEDS: Lorazepam 2 MG/ML VIAL SLOW IVP PRN ×2 (01:45→08:51)
[2021-12-13] MEDS: Pantoprazole 40 MG VIAL IVP SCH ×2 (03:16→16:37)
[2021-12-13] MEDS: Propofol 1,000 MG/100 ML VIAL IV PRN ×6 (03:16→20:12)
[2021-12-13 03:43] LABS: Hemoglobin 10.7 g/dL (12.0-16.0); Mean Corpuscular HGB CONC 34.1 g/dL (32.0-36.0); Mean Corpuscular Hemoglobin 33.1 pg (27.0-31.0); Mean Platelet Volume 8.2 fL (7.4-10.4); Platelet Count 311 thou/uL (130-400); RBC Distribution Width 12.4 % (11.5-14.5); Red Blood Cell (RBC) Count 3.25 mill/uL (4.20-5.40); White Blood Cell (WBC) Count 7.1 thou/uL (4.8-10.8)
[2021-12-13 04:00] LABS: ALT (SGPT) 75 U/L (8-55); AST (SGOT) 64 U/L (5-34); Alkaline Phosphatase 67 U/L (40-110); Anion Gap 20 mmol/L (10-20); BUN (Urea Nitrogen) 27 mg/dL (9.8-20.1); Bilirubin, Direct 0.4 mg/dL (0.1-0.3); Bilirubin, Total 0.7 mg/dL (0.2-1.2); Calc. Creatinine Clearance 192 mL/min (70-130); Calcium 8.1 mg/dL (7.8-10.44); Carbon Dioxide 18 mmol/L (22-29); Chloride 105 mmol/L (98-107); Globulin 2.6 g/dL (2.4-3.5); Glucose 257 mg/dL (70-105); Potassium 3.9 mmol/L (3.5-5.1); Protein, Total 5.6 g/dL (6.0-8.3); Sodium 139 mmol/L (136-145)
[2021-12-13 04:07] LABS: Band 4 % (5-11); Lymphocytes 15 % (21-51); MDiff Complete? YES; Metamyelocyte 2 % (0-0); Monocytes 12 % (0-10); Myelocyte 5 % (0-0); Neutrophil 62 % (42-75); Nucleated RBC 1 % (0)
[2021-12-13] MEDS: Albuterol 200 PUFF (6.7GM INHALER) INH SCH ×3 (08:06→22:16)
[2021-12-13] MEDS: Ascorbic Acid 500 mg Chewable Tablet PO SCH (10:30)
[2021-12-13] MEDS: Aspirin 325 MG TAB PO SCH (10:30)
[2021-12-13] MEDS: Dexamethasone 10 MG/ML VIAL SLOW IVP SCH ×2 (10:30→20:12)
[2021-12-13] MEDS: Zinc Sulfate 220 MG CAP PO SCH (10:31)
[2021-12-13] MEDS: Cholecalciferol 1,000 UNITS (25 MCG) TAB PO SCH (10:31)
[2021-12-13] MEDS: Enoxaparin Sodium 60 MG/0.6 ML SYRINGE SC SCH ×2 (10:31→20:12)
[2021-12-13] MEDS: fentaNYL Citrate/PF 2,000 MCG in Sodium Chloride 0.9% 60 ML IV SCH (14:06)
[2021-12-13] MEDS: BARICITINIB 2 MG TAB PO SCH (20:11)
[2021-12-13] MEDS: Atorvastatin Calcium 10 MG TAB PO SCH (20:12)
[2021-12-14] MEDS: Propofol 1,000 MG/100 ML VIAL IV PRN ×5 (00:31→20:23)
[2021-12-14] MEDS: Albuterol 200 PUFF (6.7GM INHALER) INH SCH ×4 (02:17→18:24)
[2021-12-14] MEDS: Pantoprazole 40 MG VIAL IVP SCH ×2 (03:56→15:24)
[2021-12-14] MEDS: Lorazepam 2 MG/ML VIAL SLOW IVP PRN (04:06)
[2021-12-14 04:41] LABS: Band 4 % (5-11); Hemoglobin 9.9 g/dL (12.0-16.0); Lymphocytes 10 % (21-51); MDiff Complete? YES; Mean Corpuscular HGB CONC 33.9 g/dL (32.0-36.0); Mean Corpuscular Hemoglobin 32.7 pg (27.0-31.0); Mean Corpuscular Volume 96.6 fL (78.0-98.0); Mean Platelet Volume 7.9 fL (7.4-10.4); Monocytes 11 % (0-10); Myelocyte 1 % (0-0); Neutrophil 73 % (42-75); Platelet Count 312 thou/uL (130-400); Platelet Morphology Comment Appears Adequate; RBC Distribution Width 12.3 % (11.5-14.5); RBC Morphology Normal; Reactive Lymphocytes 1 % (0-10); Red Blood Cell (RBC) Count 3.03 mill/uL (4.20-5.40); White Blood Cell (WBC) Count 10.8 thou/uL (4.8-10.8)
[2021-12-14 04:45] LABS: ALT (SGPT) 83 U/L (8-55); AST (SGOT) 55 U/L (5-34); Albumin 2.8 g/dL (3.5-5.0); Alkaline Phosphatase 60 U/L (40-110); Anion Gap 8 mmol/L (10-20); BUN (Urea Nitrogen) 26 mg/dL (9.8-20.1); Bilirubin, Total 0.5 mg/dL (0.2-1.2); Calc. Creatinine Clearance 194 mL/min (70-130); Calcium 8.1 mg/dL (7.8-10.44); Carbon Dioxide 27 mmol/L (22-29); Chloride 105 mmol/L (98-107); Globulin 2.5 g/dL (2.4-3.5); Glucose 293 mg/dL (70-105); Potassium 4.2 mmol/L (3.5-5.1); Protein, Total 5.3 g/dL (6.0-8.3); Sodium 136 mmol/L (136-145)
[2021-12-14] MEDS ORDERED: Dextrose 5% in Water 1,000 ML IV PRN (07:52)
[2021-12-14] MEDS ORDERED: Dextrose 50% Abboject 50 ML SYRINGE SLOW IVP PRN (07:52)
[2021-12-14] MEDS ORDERED: Furosemide 40 MG/4 ML VIAL SLOW IVP SCH (08:15)
[2021-12-14] MEDS: Cholecalciferol 1,000 UNITS (25 MCG) TAB PO SCH (08:43)
[2021-12-14] MEDS: Dexamethasone 10 MG/ML VIAL SLOW IVP SCH ×2 (08:43→20:24)
[2021-12-14] MEDS: Ascorbic Acid 500 mg Chewable Tablet PO SCH (08:43)
[2021-12-14] MEDS: Zinc Sulfate 220 MG CAP PO SCH (08:43)
[2021-12-14] MEDS: Aspirin 325 MG TAB PO SCH (08:43)
[2021-12-14] MEDS: Enoxaparin Sodium 60 MG/0.6 ML SYRINGE SC SCH ×2 (08:43→20:24)
[2021-12-14] MEDS: HumaLOG 300 UNITS/3 ML VIAL SC PRN ×3 (11:25→21:36)
[2021-12-14 11:33] LABS: Actual Bicarbonate (HCO3a) 25.1 mEq/L (22-28); CO2 Tension 33.9 mmHg (35.0-45.0); Carboxyhemoglobin (COHb) 0.4 gm% (0.0-3.0); Hemoglobin (Hb) 10.9 g/dL (12.0-16.0); Potassium - ABG Lab 4.14 mmol/L (3.70-5.30); pH, Arterial 7.49 (7.35-7.45)
[2021-12-14 11:34] LABS: ALV-art Gradient 153.825 mmHg (0-20); Analyzer IN Cardio OR; Calcium, Ionized (arterial) 1.14 mmol/L (1.12-1.30); Puncture Site RRA
[2021-12-14] MEDS: fentaNYL Citrate/PF 2,000 MCG in Sodium Chloride 0.9% 60 ML IV SCH (11:53)
[2021-12-14] MEDS: Atorvastatin Calcium 10 MG TAB PO SCH (20:24)
[2021-12-14] MEDS: BARICITINIB 2 MG TAB PO SCH (20:24)
[2021-12-15] MEDS: Propofol 1,000 MG/100 ML VIAL IV PRN ×4 (00:15→17:54)
[2021-12-15] MEDS: Albuterol 200 PUFF (6.7GM INHALER) INH SCH ×4 (00:19→19:01)
[2021-12-15] MEDS: Lorazepam 2 MG/ML VIAL SLOW IVP PRN (00:54)
[2021-12-15] MEDS: fentaNYL Citrate/PF 2,000 MCG in Sodium Chloride 0.9% 60 ML IV SCH (02:27)
[2021-12-15] MEDS: Pantoprazole 40 MG VIAL IVP SCH ×2 (04:20→15:54)
[2021-12-15] MEDS: HumaLOG 300 UNITS/3 ML VIAL SC PRN ×2 (05:03→09:18)
[2021-12-15 05:50] LABS: Band 9 % (5-11); Hemoglobin 10.2 g/dL (12.0-16.0); Lymphocytes 17 % (21-51); MDiff Complete? YES; Mean Corpuscular HGB CONC 34.1 g/dL (32.0-36.0); Mean Corpuscular Hemoglobin 32.8 pg (27.0-31.0); Mean Corpuscular Volume 96.3 fL (78.0-98.0); Mean Platelet Volume 8.4 fL (7.4-10.4); Metamyelocyte 1 % (0-0); Monocytes 5 % (0-10); Myelocyte 2 % (0-0); Neutrophil 66 % (42-75); Platelet Count 296 thou/uL (130-400); RBC Distribution Width 12.3 % (11.5-14.5); Red Blood Cell (RBC) Count 3.12 mill/uL (4.20-5.40); White Blood Cell (WBC) Count 10.5 thou/uL (4.8-10.8)
[2021-12-15] MEDS: NPH, Human Insulin Isophane 300 UNIT/3 ML VIAL SC SCH ×4 (06:04→17:54)
[2021-12-15 06:12] LABS: ALT (SGPT) 90 U/L (8-55); AST (SGOT) 44 U/L (5-34); Albumin 2.9 g/dL (3.5-5.0); Alkaline Phosphatase 65 U/L (40-110); Anion Gap 10 mmol/L (10-20); BUN (Urea Nitrogen) 28 mg/dL (9.8-20.1); Bilirubin, Total 0.6 mg/dL (0.2-1.2); Calc. Creatinine Clearance 188 mL/min (70-130); Calcium 8.3 mg/dL (7.8-10.44); Carbon Dioxide 27 mmol/L (22-29); Chloride 103 mmol/L (98-107); Globulin 2.5 g/dL (2.4-3.5); Glucose 245 mg/dL (70-105); Magnesium 2.2 mg/dL (1.6-2.6); Potassium 4.1 mmol/L (3.5-5.1); Protein, Total 5.4 g/dL (6.0-8.3); Sodium 136 mmol/L (136-145)
[2021-12-15] MEDS: Cholecalciferol 1,000 UNITS (25 MCG) TAB PO SCH (07:54)
[2021-12-15] MEDS: Aspirin 325 MG TAB PO SCH (07:55)
[2021-12-15] MEDS: Zinc Sulfate 220 MG CAP PO SCH (07:55)
[2021-12-15] MEDS: Ascorbic Acid 500 mg Chewable Tablet PO SCH (07:55)
[2021-12-15] MEDS: Enoxaparin Sodium 60 MG/0.6 ML SYRINGE SC SCH ×2 (07:55→21:52)
[2021-12-15] MEDS: Dexamethasone 10 MG/ML VIAL SLOW IVP SCH ×2 (07:55→21:52)
[2021-12-15 08:00] LABS: Actual Bicarbonate (HCO3a) 26.8 mEq/L (22-28); Base Excess (BEa) 2.9 mEq/L (-2.0 to +3.0); CO2 Tension 38.3 mmHg (35.0-45.0); Calcium, Ionized (arterial) 1.12 mmol/L (1.12-1.30); Carboxyhemoglobin (COHb) 0.3 gm% (0.0-3.0); Hemoglobin (Hb) 9.1 g/dL (12.0-16.0); Potassium - ABG Lab 4.16 mmol/L (3.70-5.30); pH, Arterial 7.46 (7.35-7.45)
[2021-12-15 08:03] LABS: Puncture Site LRA
[2021-12-15 08:05] LABS: ALV-art Gradient 101.325 mmHg (0-20)
[2021-12-15] MEDS: Atorvastatin Calcium 10 MG TAB PO SCH (21:53)
[2021-12-15] MEDS: BARICITINIB 2 MG TAB PO SCH (21:53)
[2021-12-16] MEDS: NPH, Human Insulin Isophane 300 UNIT/3 ML VIAL SC SCH ×5 (00:03→20:23)
[2021-12-16] MEDS: HumaLOG 300 UNITS/3 ML VIAL SC PRN ×2 (00:03→05:30)
[2021-12-16] MEDS: Albuterol 200 PUFF (6.7GM INHALER) INH SCH ×4 (00:15→19:16)
[2021-12-16] MEDS: Propofol 1,000 MG/100 ML VIAL IV PRN ×2 (01:21→05:30)
[2021-12-16] MEDS: fentaNYL Citrate/PF 2,000 MCG in Sodium Chloride 0.9% 60 ML IV SCH (02:41)
[2021-12-16] MEDS: Pantoprazole 40 MG VIAL IVP SCH ×2 (03:28→16:17)
[2021-12-16 04:56] LABS: ALT (SGPT) 83 U/L (8-55); AST (SGOT) 38 U/L (5-34); Alkaline Phosphatase 65 U/L (40-110); Anion Gap 11 mmol/L (10-20); BUN (Urea Nitrogen) 26 mg/dL (9.8-20.1); Bilirubin, Total 0.7 mg/dL (0.2-1.2); Calc. Creatinine Clearance 182 mL/min (70-130); Calcium 8.3 mg/dL (7.8-10.44); Carbon Dioxide 26 mmol/L (22-29); Chloride 104 mmol/L (98-107); Globulin 2.5 g/dL (2.4-3.5); Glucose 206 mg/dL (70-105); Magnesium 2.3 mg/dL (1.6-2.6); Potassium 4.1 mmol/L (3.5-5.1); Protein, Total 5.5 g/dL (6.0-8.3); Sodium 137 mmol/L (136-145)
[2021-12-16 05:08] LABS: Band 3 % (5-11); Hemoglobin 10.7 g/dL (12.0-16.0); Lymphocytes 15 % (21-51); MDiff Complete? YES; Mean Corpuscular HGB CONC 33.9 g/dL (32.0-36.0); Mean Corpuscular Hemoglobin 32.5 pg (27.0-31.0); Mean Platelet Volume 8.3 fL (7.4-10.4); Monocytes 5 % (0-10); Neutrophil 77 % (42-75); Platelet Count 309 thou/uL (130-400); RBC Distribution Width 12.7 % (11.5-14.5); White Blood Cell (WBC) Count 10.7 thou/uL (4.8-10.8)
[2021-12-16 07:56] LABS: Actual Bicarbonate (HCO3a) 25.9 mEq/L (22-28); Base Excess (BEa) 2.3 mEq/L (-2.0 to +3.0); CO2 Tension 36.4 mmHg (35.0-45.0); Calcium, Ionized (arterial) 1.08 mmol/L (1.12-1.30); Carboxyhemoglobin (COHb) 0.2 gm% (0.0-3.0); Hemoglobin (Hb) 10.1 g/dL (12.0-16.0); O2 Tension (PaO2), arterial 115.3 mmHg (80.0-100.0); Potassium - ABG Lab 4.22 mmol/L (3.70-5.30); pH, Arterial 7.47 (7.35-7.45)
[2021-12-16 08:02] LABS: Puncture Site RRA
[2021-12-16] MEDS: Enoxaparin Sodium 60 MG/0.6 ML SYRINGE SC SCH ×2 (08:07→20:23)
[2021-12-16] MEDS: Ascorbic Acid 500 mg Chewable Tablet PO SCH (08:07)
[2021-12-16] MEDS: Zinc Sulfate 220 MG CAP PO SCH (08:08)
[2021-12-16] MEDS: Dexamethasone 10 MG/ML VIAL SLOW IVP SCH ×2 (08:08→20:23)
[2021-12-16] MEDS: Cholecalciferol 1,000 UNITS (25 MCG) TAB PO SCH (08:08)
[2021-12-16] MEDS ORDERED: Dexmedetomidine In 0.9 % NaCl 100 ML IVPB SCH (10:45)
[2021-12-16] MEDS: BARICITINIB 2 MG TAB PO SCH (20:22)
[2021-12-16] MEDS: Atorvastatin Calcium 10 MG TAB PO SCH (20:23)
[2021-12-17] MEDS: Albuterol 200 PUFF (6.7GM INHALER) INH SCH ×4 (01:52→21:35)
[2021-12-17] MEDS: Pantoprazole 40 MG VIAL IVP SCH ×2 (05:18→16:00)
[2021-12-17 05:57] LABS: ALT (SGPT) 82 U/L (8-55); AST (SGOT) 39 U/L (5-34); Albumin 3.1 g/dL (3.5-5.0); Alkaline Phosphatase 67 U/L (40-110); Anion Gap 11 mmol/L (10-20); BUN (Urea Nitrogen) 25 mg/dL (9.8-20.1); Bilirubin, Total 0.9 mg/dL (0.2-1.2); Calc. Creatinine Clearance 175 mL/min (70-130); Calcium 8.5 mg/dL (7.8-10.44); Carbon Dioxide 27 mmol/L (22-29); Chloride 106 mmol/L (98-107); Globulin 2.5 g/dL (2.4-3.5); Glucose 89 mg/dL (70-105); Magnesium 2.2 mg/dL (1.6-2.6); Potassium 3.3 mmol/L (3.5-5.1); Protein, Total 5.6 g/dL (6.0-8.3); Sodium 141 mmol/L (136-145)
[2021-12-17 06:10] LABS: Hemoglobin 11.3 g/dL (12.0-16.0); Hypochromia SLIGHT = 6-15 cells (100X) (0-5/hpf); Lymphocytes 18 % (21-51); MDiff Complete? YES; Mean Corpuscular HGB CONC 33.1 g/dL (32.0-36.0); Mean Corpuscular Hemoglobin 32.2 pg (27.0-31.0); Mean Corpuscular Volume 97.1 fL (78.0-98.0); Monocytes 20 % (0-10); Neutrophil 62 % (42-75); Platelet Count 328 thou/uL (130-400); Platelet Morphology Comment Appears Adequate; RBC Distribution Width 12.8 % (11.5-14.5); Red Blood Cell (RBC) Count 3.51 mill/uL (4.20-5.40); White Blood Cell (WBC) Count 13.5 thou/uL (4.8-10.8)
[2021-12-17] MEDS: NPH, Human Insulin Isophane 300 UNIT/3 ML VIAL SC SCH ×3 (06:54→17:39)
[2021-12-17] MEDS ORDERED: Potassium Chloride 20 MEQ TAB PO SCH (07:45)
[2021-12-17] MEDS: Dexamethasone 4 MG TAB PO SCH (08:09)
[2021-12-17] MEDS: Enoxaparin Sodium 60 MG/0.6 ML SYRINGE SC SCH ×2 (08:09→20:58)
[2021-12-17] MEDS: Zinc Sulfate 220 MG CAP PO SCH (08:10)
[2021-12-17] MEDS: Ascorbic Acid 500 mg Chewable Tablet PO SCH (08:10)
[2021-12-17] MEDS: Aspirin 325 MG TAB PO SCH (08:11)
[2021-12-17] MEDS: Cholecalciferol 1,000 UNITS (25 MCG) TAB PO SCH (08:11)
[2021-12-17] MEDS: HumaLOG 300 UNITS/3 ML VIAL SC PRN (12:00)
[2021-12-17] MEDS: BARICITINIB 2 MG TAB PO SCH (20:57)
[2021-12-17] MEDS: Atorvastatin Calcium 10 MG TAB PO SCH (20:58)
[2021-12-18] MEDS: NPH, Human Insulin Isophane 300 UNIT/3 ML VIAL SC SCH ×3 (01:26→13:00)
[2021-12-18] MEDS: Albuterol 200 PUFF (6.7GM INHALER) INH SCH ×4 (01:27→20:46)
[2021-12-18] MEDS: Pantoprazole 40 MG VIAL IVP SCH (05:23)
[2021-12-18 05:47] LABS: ALT (SGPT) 91 U/L (8-55); AST (SGOT) 50 U/L (5-34); Albumin 3.2 g/dL (3.5-5.0); Alkaline Phosphatase 70 U/L (40-110); Anion Gap 12 mmol/L (10-20); BUN (Urea Nitrogen) 26 mg/dL (9.8-20.1); Bilirubin, Total 1.1 mg/dL (0.2-1.2); Calc. Creatinine Clearance 181 mL/min (70-130); Calcium 8.6 mg/dL (7.8-10.44); Carbon Dioxide 23 mmol/L (22-29); Chloride 106 mmol/L (98-107); Globulin 2.9 g/dL (2.4-3.5); Glucose 92 mg/dL (70-105); Potassium 3.8 mmol/L (3.5-5.1); Protein, Total 6.1 g/dL (6.0-8.3); Sodium 137 mmol/L (136-145)
[2021-12-18] MEDS: Cholecalciferol 1,000 UNITS (25 MCG) TAB PO SCH (09:22)
[2021-12-18] MEDS: Aspirin 325 MG TAB PO SCH (09:22)
[2021-12-18] MEDS: Dexamethasone 4 MG TAB PO SCH (09:22)
[2021-12-18] MEDS: Ascorbic Acid 500 mg Chewable Tablet PO SCH (09:22)
[2021-12-18] MEDS: Zinc Sulfate 220 MG CAP PO SCH (09:22)
[2021-12-18] MEDS: Enoxaparin Sodium 60 MG/0.6 ML SYRINGE SC SCH (09:23)
[2021-12-18] MEDS ORDERED: hydrOXYzine 25 MG TAB PO SCH (20:19)
[2021-12-18] MEDS: Atorvastatin Calcium 10 MG TAB PO SCH (20:45)
[2021-12-18] MEDS: BARICITINIB 2 MG TAB PO SCH (20:46)
[2021-12-18] MEDS ORDERED: NPH, Human Insulin Isophane 300 UNIT/3 ML VIAL SC SCH (21:00)
[2021-12-19] MEDS: Albuterol 200 PUFF (6.7GM INHALER) INH SCH ×4 (02:59→18:12)
[2021-12-19 06:32] LABS: ALT (SGPT) 94 U/L (8-55); AST (SGOT) 42 U/L (5-34); Albumin 3.3 g/dL (3.5-5.0); Alkaline Phosphatase 68 U/L (40-110); Anion Gap 12 mmol/L (10-20); BUN (Urea Nitrogen) 21 mg/dL (9.8-20.1); Bilirubin, Total 1.2 mg/dL (0.2-1.2); Calc. Creatinine Clearance 178 mL/min (70-130); Calcium 8.6 mg/dL (7.8-10.44); Carbon Dioxide 26 mmol/L (22-29); Chloride 103 mmol/L (98-107); Globulin 2.6 g/dL (2.4-3.5); Glucose 81 mg/dL (70-105); Potassium 3.9 mmol/L (3.5-5.1); Protein, Total 5.9 g/dL (6.0-8.3); Sodium 137 mmol/L (136-145)
[2021-12-19] MEDS: Enoxaparin Sodium 40 MG/0.4 ML SYRINGE SC SCH (08:00)
[2021-12-19] MEDS: Zinc Sulfate 220 MG CAP PO SCH (08:01)
[2021-12-19] MEDS: Dexamethasone 4 MG TAB PO SCH (08:01)
[2021-12-19] MEDS: Cholecalciferol 1,000 UNITS (25 MCG) TAB PO SCH (08:01)
[2021-12-19] MEDS: Aspirin 325 MG TAB PO SCH (08:01)
[2021-12-19] MEDS: Ascorbic Acid 500 mg Chewable Tablet PO SCH (08:01)
[2021-12-19] MEDS: Pregabalin 75 MG CAP PO SCH ×2 (08:54→21:25)
[2021-12-19] MEDS: BARICITINIB 2 MG TAB PO SCH (21:25)
[2021-12-19] MEDS: Atorvastatin Calcium 10 MG TAB PO SCH (21:25)
[2021-12-19] MEDS: traZODone HCl 50 MG TAB PO PRN (21:25)
[2021-12-20] MEDS: Albuterol 200 PUFF (6.7GM INHALER) INH SCH ×5 (02:37→22:40)
[2021-12-20 06:18] LABS: ALT (SGPT) 106 U/L (8-55); AST (SGOT) 55 U/L (5-34); Albumin 3.4 g/dL (3.5-5.0); Alkaline Phosphatase 70 U/L (40-110); Anion Gap 13 mmol/L (10-20); BUN (Urea Nitrogen) 23 mg/dL (9.8-20.1); Bilirubin, Total 1.1 mg/dL (0.2-1.2); Calc. Creatinine Clearance 160 mL/min (70-130); Calcium 8.8 mg/dL (7.8-10.44); Carbon Dioxide 23 mmol/L (22-29); Chloride 105 mmol/L (98-107); Globulin 2.7 g/dL (2.4-3.5); Glucose 95 mg/dL (70-105); Potassium 4.4 mmol/L (3.5-5.1); Protein, Total 6.1 g/dL (6.0-8.3); Sodium 137 mmol/L (136-145)
[2021-12-20] MEDS: Enoxaparin Sodium 40 MG/0.4 ML SYRINGE SC SCH (08:28)
[2021-12-20] MEDS: Pregabalin 75 MG CAP PO SCH ×2 (08:28→20:54)
[2021-12-20] MEDS: Ascorbic Acid 500 mg Chewable Tablet PO SCH (08:29)
[2021-12-20] MEDS: Dexamethasone 4 MG TAB PO SCH (08:29)
[2021-12-20] MEDS: Aspirin 325 MG TAB PO SCH (08:30)
[2021-12-20] MEDS: Zinc Sulfate 220 MG CAP PO SCH (08:30)
[2021-12-20] MEDS: Cholecalciferol 1,000 UNITS (25 MCG) TAB PO SCH (08:30)
[2021-12-20 14:06] VITALS: BMI 47.0
[2021-12-20] MEDS: BARICITINIB 2 MG TAB PO SCH (20:54)
[2021-12-20] MEDS: Atorvastatin Calcium 10 MG TAB PO SCH (20:54)
[2021-12-20] MEDS: traZODone HCl 50 MG TAB PO PRN (20:54)
[2021-12-21] MEDS: Enoxaparin Sodium 40 MG/0.4 ML SYRINGE SC SCH (08:11)
[2021-12-21] MEDS: Pregabalin 75 MG CAP PO SCH ×2 (08:11→20:34)
[2021-12-21] MEDS: Ascorbic Acid 500 mg Chewable Tablet PO SCH (08:13)
[2021-12-21] MEDS: Cholecalciferol 1,000 UNITS (25 MCG) TAB PO SCH (08:13)
[2021-12-21] MEDS: Aspirin 325 MG TAB PO SCH (08:13)
[2021-12-21] MEDS: Zinc Sulfate 220 MG CAP PO SCH (08:13)
[2021-12-21] MEDS: Dexamethasone 4 MG TAB PO SCH (08:13)
[2021-12-21] MEDS: Albuterol 200 PUFF (6.7GM INHALER) INH SCH ×4 (13:25→22:09)
[2021-12-21] MEDS: Bacitracin 1 PK TOP SCH ×2 (16:38→20:37)
[2021-12-21] MEDS: traZODone HCl 50 MG TAB PO PRN (20:34)
[2021-12-21] MEDS: Atorvastatin Calcium 10 MG TAB PO SCH (20:34)
[2021-12-21] MEDS: BARICITINIB 2 MG TAB PO SCH (20:34)
[2021-12-22] MEDS: Enoxaparin Sodium 40 MG/0.4 ML SYRINGE SC SCH (08:15)
[2021-12-22] MEDS: Pregabalin 75 MG CAP PO SCH ×2 (08:15→21:05)
[2021-12-22] MEDS: Dexamethasone 4 MG TAB PO SCH (08:16)
[2021-12-22] MEDS: Ascorbic Acid 500 mg Chewable Tablet PO SCH (08:16)
[2021-12-22] MEDS: Aspirin 325 MG TAB PO SCH (08:17)
[2021-12-22] MEDS: Albuterol 200 PUFF (6.7GM INHALER) INH SCH ×3 (08:17→21:30)
[2021-12-22] MEDS: Cholecalciferol 1,000 UNITS (25 MCG) TAB PO SCH (08:17)
[2021-12-22] MEDS: Zinc Sulfate 220 MG CAP PO SCH (08:17)
[2021-12-22] MEDS: Bacitracin 1 PK TOP SCH ×3 (08:17→21:05)
[2021-12-22] MEDS: Atorvastatin Calcium 10 MG TAB PO SCH (21:05)
[2021-12-22] MEDS: traZODone HCl 50 MG TAB PO PRN (21:05)
[2021-12-22] MEDS: BARICITINIB 2 MG TAB PO SCH (21:05)
[2021-12-23] MEDS: Albuterol 200 PUFF (6.7GM INHALER) INH SCH ×2 (02:34→08:21)
[2021-12-23] MEDS: Enoxaparin Sodium 40 MG/0.4 ML SYRINGE SC SCH (08:19)
[2021-12-23] MEDS: Bacitracin 1 PK TOP SCH (08:19)
[2021-12-23] MEDS: Aspirin 325 MG TAB PO SCH (08:19)
[2021-12-23] MEDS: Cholecalciferol 1,000 UNITS (25 MCG) TAB PO SCH (08:19)
[2021-12-23] MEDS: Zinc Sulfate 220 MG CAP PO SCH (08:19)
[2021-12-23] MEDS: Ascorbic Acid 500 mg Chewable Tablet PO SCH (08:19)
[2021-12-23] MEDS: Dexamethasone 4 MG TAB PO SCH (08:19)
[2021-12-23] MEDS: Pregabalin 75 MG CAP PO SCH (08:19)
[2021-12-23 09:55] LABS: #Basophils 0.1 thou/uL (0.0-0.2); #Eosinphils 0.1 thou/uL (0.0-0.7); #Lymphocytes 2.8 thou/uL (1.20-3.40); #Monocytes 0.5 thou/uL (0.11-0.59); %Basophils 0.7 % (0.0-1.0); %Eosinophils 0.6 % (0.0-10.0); %Lymphocytes 33.6 % (21.0-51.0); %Monocytes 5.8 % (0.0-10.0); %Neutrophils 59.2 % (42.0-75.0); Hemoglobin 11.8 g/dL (12.0-16.0); Mean Corpuscular HGB CONC 32.9 g/dL (32.0-36.0); Mean Corpuscular Hemoglobin 32.2 pg (27.0-31.0); Mean Platelet Volume 7.9 fL (7.4-10.4); Platelet Count 303 thou/uL (130-400); RBC Distribution Width 13.2 % (11.5-14.5); Red Blood Cell (RBC) Count 3.67 mill/uL (4.20-5.40); White Blood Cell (WBC) Count 8.5 thou/uL (4.8-10.8)
[2021-12-23 10:17] LABS: Anion Gap 13 mmol/L (10-20); BUN (Urea Nitrogen) 21 mg/dL (9.8-20.1); CRP (Inflammatory) Less than 0.50 mg/dL (= or < 0.5); Calc. Creatinine Clearance 183 mL/min (70-130); Calcium 8.9 mg/dL (7.8-10.44); Carbon Dioxide 24 mmol/L (22-29); Chloride 106 mmol/L (98-107); Glucose 82 mg/dL (70-105); Potassium 3.5 mmol/L (3.5-5.1); Sodium 139 mmol/L (136-145)
[2021-12-23 15:07] VITALS: BP 128/85; TEMP 98
== END 2021-12-23 15:17 | DRG 207 ==
LOC: ERS 23:05 → IMCU/EMU 12-08 00:57 → CCU 12-09 15:54 → T4-B 12-17 08:44
PROVIDERS: ADMIT Internal Medicine; ATTEND Internal Medicine
PROC: 8E0ZXY6 Isolation (ICD-10-PCS; 2021-12-08)
PROC: 3E03329 Introduction of Other Anti-infective into Peripheral Vein, Percutaneous Approach (ICD-10-PCS; 2021-12-08)
PROC: XW0DXM6 Introduction of Baricitinib into Mouth and Pharynx, External Approach, New Technology Group 6 (ICD-10-PCS; 2021-12-09)
PROC: 5A09357 Assistance with Respiratory Ventilation, Less than 24 Consecutive Hours, Continuous Positive Airway Pressure (ICD-10-PCS; 2021-12-09)
PROC: 5A1955Z Respiratory Ventilation, Greater than 96 Consecutive Hours (ICD-10-PCS; principal; 2021-12-10)
PROC: 0BH17EZ Insertion of Endotracheal Airway into Trachea, Via Natural or Artificial Opening (ICD-10-PCS; 2021-12-10)
PROC: 0D9770Z Drainage of Stomach, Pylorus with Drainage Device, Via Natural or Artificial Opening (ICD-10-PCS; 2021-12-10)
DX: U07.1 COVID-19 (principal); J12.82 Pneumonia due to coronavirus disease 2019; J80 Acute respiratory distress syndrome; N17.9 Acute kidney failure, unspecified; Z68.43 Body mass index [BMI] 50.0-59.9, adult; I10 Essential (primary) hypertension; E78.00 Pure hypercholesterolemia, unspecified; F41.9 Anxiety disorder, unspecified; E87.6 Hypokalemia; E78.5 Hyperlipidemia, unspecified; M54.2 Cervicalgia; G89.29 Other chronic pain; E66.01 Morbid (severe) obesity due to excess calories; R74.01 Elevation of levels of liver transaminase levels; Z90.710 Acquired absence of both cervix and uterus; Z98.890 Other specified postprocedural states; Z82.49 Family history of ischemic heart disease and other diseases of the circulatory system; Z72.89 Other problems related to lifestyle; Z88.1 Allergy status to other antibiotic agents; Z78.1 Physical restraint status; R73.9 Hyperglycemia, unspecified; T38.0X5A Adverse effect of glucocorticoids and synthetic analogues, initial encounter
CPT/HCPCS: 36415; 36416; 36600; 71045; 80048; 80053; 80076; 81003; 82728; 82805; 83605; 83735; 84100; 84145; 85025; 85379; 86140; 87040; 87086; 94002; 94003; 96372; 96374; 96375; C9113; J1100; J1644; J1650; J1815; J1940; J1956; J2060; J2704; J2930; J3010; J3480; J3490; J7131; J8540

== ENCOUNTER 2021-12-29 09:53 | Outpatient (CLI) | payer BC | END 2021-12-29 09:54 | disposition home or self-care (01) | LOC: RAD 09:53 | PROVIDERS: ATTEND Internal Medicine Critical Care Medicine | DX: R06.00 Dyspnea, unspecified (principal); J98.4 Other disorders of lung; Z98.1 Arthrodesis status | CPT/HCPCS: 71046 ==

== ENCOUNTER 2022-07-13 10:45 | Outpatient (CLI) | payer BC | END 2022-07-13 10:46 | disposition home or self-care (01) | LOC: RAD 10:45 | PROVIDERS: ATTEND Internal Medicine Critical Care Medicine | DX: R06.00 Dyspnea, unspecified (principal) | CPT/HCPCS: 71046 ==

== ENCOUNTER 2023-08-01 10:26 | Outpatient (CLI) | payer BC | END 2023-08-01 10:27 | disposition home or self-care (01) | LOC: SCSRAD 10:26 | PROVIDERS: ATTEND Family Medicine | DX: R05.9 Cough, unspecified (principal) | CPT/HCPCS: 71046 ==

== ENCOUNTER 2023-10-10 10:45 | Outpatient (CLI) | payer BC | END 2023-10-10 10:46 | disposition home or self-care (01) | LOC: BICRAD 10:45 | PROVIDERS: ATTEND Nurse Practitioner Family | DX: M25.551 Pain in right hip (principal); M16.11 Unilateral primary osteoarthritis, right hip ==

== ENCOUNTER 2023-11-24 07:51 | Outpatient (CLI) | payer BC | END 2023-11-24 07:52 | disposition home or self-care (01) | LOC: SCSRAD 07:51 | PROVIDERS: ATTEND Surgery | DX: M50.30 Other cervical disc degeneration, unspecified cervical region (principal); S12.300A Unspecified displaced fracture of fourth cervical vertebra, initial encounter for closed fracture; M47.812 Spondylosis without myelopathy or radiculopathy, cervical region; Z98.1 Arthrodesis status; Z98.890 Other specified postprocedural states | CPT/HCPCS: 72040 ==

== ENCOUNTER 2023-11-27 10:13 | Outpatient (CLI) | payer BC | END 2023-11-27 10:14 | disposition home or self-care (01) | LOC: BICMAMMO 10:13 | PROVIDERS: ATTEND Family Medicine | DX: Z12.31 Encounter for screening mammogram for malignant neoplasm of breast (principal); Z80.3 Family history of malignant neoplasm of breast | CPT/HCPCS: 77063; 77067 ==